=== PATIENT | male | born 1950 | race Caucasian/White ===

== ENCOUNTER → 2024-05-15 | Outpatient (CLI) | payer MEDICARE, MEDICAID, SELFPAY ==
[2024-05-15 13:26] LABS: Basophils # (Auto) 0.1 Thou/mm3 (0.0-0.2); Basophils % (Auto) 1 % (0-2.5); Eosinophils # (Auto) 0.3 Thou/mm3 (0.0-0.5); Eosinophils % (Auto) 4 % (0-10); Hematocrit 36.5 % (41.0-53.0); Immature Granulocytes % (Auto) 1 % (0-0); Immature Granulocytes Auto 0.04 Thou/mm3 (0.00-0.00); Lymphocytes # (Auto) 2.3 Thou/mm3 (1.0-4.8); Lymphocytes % (Auto) 29 % (10-50); Mean Corpuscular HGB Conc 32.9 g/dl (31.0-37.0); Mean Corpuscular Hemoglobin 29.9 pg (25.0-35.0); Mean Corpuscular Volume 91 fL (80-100); Monocytes # (Auto) 0.7 Thou/mm3 (0.0-0.8); Monocytes % (Auto) 9 % (0-12); Neutrophils # (Auto) 4.6 Thou/mm3 (1.8-7.7); Neutrophils % (Auto) 57 % (37-80); Nucleated Red Blood Cell % 0 /100 WBC (0); Platelet Count 168 Thou/mm3 (140-440); RDW Standard Deviation 51.1 fL (35.1-43.9); Red Blood Count 4.02 Miln/mm3 (4.50-5.90)
[2024-05-15 13:55] LABS: Alanine Aminotransferase 8 U/L (10-49); Albumin, Serum 3.7 gm/dL (3.4-4.8); Albumin/Globulin Ratio 1.2 (1.2-2.2); Alkaline Phosphatase 90 U/L (46-116); Anion Gap 4 (7-16); Aspartate Amino Transferase 13 U/L (0-34); BUN/Creatinine Ratio 24 Ratio (12-20); Bilirubin,Total 0.2 mg/dL (0.3-1.2); Blood Urea Nitrogen 29 mg/dL (9-23); Calcium 8.9 mg/dL (8.3-10.6); Calcium (Corrected) 9.1 mg/dL (8.5-10.1); Carbon Dioxide 27.4 mMol/L (20.0-31.0); Chloride 106 mMol/L (98-107); Creatinine (Component) 1.2 mg/dL (0.6-1.3); Globulin 3.2 gm/dL (2.3-3.5); Glucose 185 mg/dL (74-106); Osmolality,Calculated 284 (275-295); Potassium 4.3 mMol/L (3.4-5.1); Sodium 137 mMol/L (136-145); Total Protein 6.9 gm/dL (5.7-8.2); eGFR > 60 See Note
== END | disposition home or self-care (01) ==
LOC: SLDO 12:34
PROVIDERS: PCP Internal Medicine; Referring Provider Internal Medicine; Visit Provider Internal Medicine
DX: Z01.89 Encounter for other specified special examinations (principal); Z79.2 Long term (current) use of antibiotics
CPT/HCPCS: 36415; 80053; 85025

== ENCOUNTER → 2024-05-22 | Outpatient (CLI) | payer MEDICARE, MEDICAID, SELFPAY ==
[2024-05-22 16:38] LABS: Basophils # (Auto) 0.1 Thou/mm3 (0.0-0.2); Basophils % (Auto) 1 % (0-2.5); Eosinophils # (Auto) 0.2 Thou/mm3 (0.0-0.5); Eosinophils % (Auto) 2 % (0-10); Hematocrit 35.4 % (41.0-53.0); Hemoglobin 11.4 g/dL (13.5-16.0); Immature Granulocytes % (Auto) 1 % (0-0); Immature Granulocytes Auto 0.05 Thou/mm3 (0.00-0.00); Lymphocytes # (Auto) 2.2 Thou/mm3 (1.0-4.8); Lymphocytes % (Auto) 23 % (10-50); Mean Corpuscular HGB Conc 32.2 g/dl (31.0-37.0); Mean Corpuscular Hemoglobin 29.6 pg (25.0-35.0); Mean Corpuscular Volume 92 fL (80-100); Monocytes # (Auto) 0.8 Thou/mm3 (0.0-0.8); Monocytes % (Auto) 8 % (0-12); Neutrophils # (Auto) 6.4 Thou/mm3 (1.8-7.7); Neutrophils % (Auto) 67 % (37-80); Nucleated Red Blood Cell % 0 /100 WBC (0); Platelet Count 161 Thou/mm3 (140-440); RDW Standard Deviation 50.7 fL (35.1-43.9); Red Blood Count 3.85 Miln/mm3 (4.50-5.90); White Blood Count 9.6 Thou/mm3 (3.8-10.6)
[2024-05-22 17:19] LABS: Alanine Aminotransferase 12 U/L (10-49); Albumin/Globulin Ratio 1.2 (1.2-2.2); Alkaline Phosphatase 96 U/L (46-116); Anion Gap 6 (7-16); Aspartate Amino Transferase 16 U/L (0-34); BUN/Creatinine Ratio 24 Ratio (12-20); Bilirubin,Total 0.2 mg/dL (0.3-1.2); Blood Urea Nitrogen 29 mg/dL (9-23); Calcium 9.3 mg/dL (8.3-10.6); Calcium (Corrected) 9.3 mg/dL (8.5-10.1); Carbon Dioxide 27.1 mMol/L (20.0-31.0); Chloride 103 mMol/L (98-107); Creatinine (Component) 1.2 mg/dL (0.6-1.3); Globulin 3.3 gm/dL (2.3-3.5); Glucose 152 mg/dL (74-106); Osmolality,Calculated 280 (275-295); Potassium 4.5 mMol/L (3.4-5.1); Sodium 136 mMol/L (136-145); Total Protein 7.3 gm/dL (5.7-8.2); eGFR > 60 See Note
== END | disposition home or self-care (01) ==
LOC: SLDO 15:44
PROVIDERS: PCP Internal Medicine; Referring Provider Internal Medicine; Visit Provider Internal Medicine
DX: Z01.89 Encounter for other specified special examinations (principal); Z79.2 Long term (current) use of antibiotics
CPT/HCPCS: 36415; 80053; 85025

== ENCOUNTER → 2024-05-29 | Outpatient (CLI) | payer MEDICARE, MEDICAID, SELFPAY ==
[2024-05-29 12:43] LABS: Basophils % (Auto) 0 % (0-2.5); Eosinophils # (Auto) 0.2 Thou/mm3 (0.0-0.5); Eosinophils % (Auto) 3 % (0-10); Hematocrit 35.9 % (41.0-53.0); Hemoglobin 11.7 g/dL (13.5-16.0); Immature Granulocytes % (Auto) 0 % (0-0); Immature Granulocytes Auto 0.03 Thou/mm3 (0.00-0.00); Lymphocytes # (Auto) 2.1 Thou/mm3 (1.0-4.8); Lymphocytes % (Auto) 28 % (10-50); Mean Corpuscular HGB Conc 32.6 g/dl (31.0-37.0); Mean Corpuscular Hemoglobin 29.8 pg (25.0-35.0); Mean Corpuscular Volume 92 fL (80-100); Monocytes # (Auto) 0.9 Thou/mm3 (0.0-0.8); Monocytes % (Auto) 11 % (0-12); Neutrophils # (Auto) 4.5 Thou/mm3 (1.8-7.7); Neutrophils % (Auto) 58 % (37-80); Nucleated Red Blood Cell % 0 /100 WBC (0); Platelet Count 202 Thou/mm3 (140-440); RDW Standard Deviation 51.1 fL (35.1-43.9); Red Blood Count 3.92 Miln/mm3 (4.50-5.90); White Blood Count 7.8 Thou/mm3 (3.8-10.6)
[2024-05-29 13:17] LABS: Alanine Aminotransferase 10 U/L (10-49); Albumin, Serum 3.8 gm/dL (3.4-4.8); Albumin/Globulin Ratio 1.2 (1.2-2.2); Alkaline Phosphatase 91 U/L (46-116); Anion Gap 3 (7-16); Aspartate Amino Transferase 15 U/L (0-34); BUN/Creatinine Ratio 24 Ratio (12-20); Bilirubin,Total 0.4 mg/dL (0.3-1.2); Blood Urea Nitrogen 29 mg/dL (9-23); Calcium 8.9 mg/dL (8.3-10.6); Calcium (Corrected) 9.1 mg/dL (8.5-10.1); Carbon Dioxide 29.4 mMol/L (20.0-31.0); Chloride 108 mMol/L (98-107); Creatinine (Component) 1.2 mg/dL (0.6-1.3); Globulin 3.2 gm/dL (2.3-3.5); Glucose 114 mg/dL (74-106); Osmolality,Calculated 286 (275-295); Potassium 4.4 mMol/L (3.4-5.1); Sodium 140 mMol/L (136-145); eGFR > 60 See Note
== END | disposition home or self-care (01) ==
PROVIDERS: Referring Provider Internal Medicine; Visit Provider Internal Medicine
DX: Z01.89 Encounter for other specified special examinations (principal); Z79.2 Long term (current) use of antibiotics
CPT/HCPCS: 36415; 80053; 85025

== ENCOUNTER → 2024-08-20 | Outpatient (BNVA) | payer MEDICARE, MEDICAID, SELFPAY | END | disposition home or self-care (01) | PROVIDERS: PCP Internal Medicine; Referring Provider Internal Medicine; Visit Provider Urology | DX: N40.1 Benign prostatic hyperplasia with lower urinary tract symptoms (principal); N13.8 Other obstructive and reflux uropathy; N20.0 Calculus of kidney; N31.9 Neuromuscular dysfunction of bladder, unspecified; Z87.440 Personal history of urinary (tract) infections; E11.9 Type 2 diabetes mellitus without complications; F17.210 Nicotine dependence, cigarettes, uncomplicated; I10 Essential (primary) hypertension; E78.00 Pure hypercholesterolemia, unspecified; I25.10 Atherosclerotic heart disease of native coronary artery without angina pectoris; J44.9 Chronic obstructive pulmonary disease, unspecified | CPT/HCPCS: 81003; 99212; G0463 ==

== ENCOUNTER → 2024-08-28 | Outpatient (CLI) | payer MEDICARE, MEDICAID, SELFPAY ==
[2024-08-28 15:09] LABS: Collection Type, Urine Clean Catch
[2024-08-28 15:41] LABS: Basophils # (Auto) 0.1 Thou/mm3 (0.0-0.2); Basophils % (Auto) 0 % (0-2.5); Eosinophils # (Auto) 0.1 Thou/mm3 (0.0-0.5); Eosinophils % (Auto) 1 % (0-10); Hematocrit 39.1 % (41.0-53.0); Hemoglobin 12.6 g/dL (13.5-16.0); Immature Granulocytes % (Auto) 1 % (0-0); Immature Granulocytes Auto 0.06 Thou/mm3 (0.00-0.00); Lymphocytes % (Auto) 17 % (10-50); Mean Corpuscular HGB Conc 32.2 g/dl (31.0-37.0); Mean Corpuscular Hemoglobin 29.2 pg (25.0-35.0); Mean Corpuscular Volume 91 fL (80-100); Monocytes # (Auto) 1.4 Thou/mm3 (0.0-0.8); Monocytes % (Auto) 12 % (0-12); Neutrophils # (Auto) 8.2 Thou/mm3 (1.8-7.7); Neutrophils % (Auto) 70 % (37-80); Nucleated Red Blood Cell % 0 /100 WBC (0); Platelet Count 208 Thou/mm3 (140-440); RDW Standard Deviation 47.5 fL (35.1-43.9); Red Blood Count 4.32 Miln/mm3 (4.50-5.90); White Blood Count 11.7 Thou/mm3 (3.8-10.6)
[2024-08-28 15:44] LABS: Bilirubin,Urine Negative (Negative); Blood,Urine Negative (Negative); Clarity,Urine Clear (Clear/Hazy); Color,Urine Lt-Yellow (Lt Yel-Yel); Glucose, Urine 1+ (Negative); Ketones,Urine Negative (Negative); Leukocyte Esterase,Urine Positive (Negative); Nitrite,Urine Negative (Negative); Protein,Urine 1+ (Neg - Trace); RBC,Urine 10 /hpf (0-3); Specific Gravity,Urine 1.021 (1.001-1.035); Squamous Epithelial Cell,Urine < 1 /hpf (0-5); Urobilinogen,Urine Negative mg/dL (0.0-1.0); WBC,Urine 96 /hpf (0-5)
[2024-08-28 15:50] LABS: Glucose Estimated Average 137 mg/dL (80-131); Hemoglobin A1C 6.4 % Hgb (4.8-6.0)
[2024-08-28 15:53] LABS: PSA Medicare Annual Scrn 0.18 ng/mL (0-4.00)
[2024-08-28 15:53] LABS: Creatinine MALB Rnd Ur 63 mg/dL (30-125); Microalbumin Creat Ratio 319 mg/gCrea (<30); Microalbumin, Random Urine 201 mg/L (0-300)
[2024-08-28 15:58] LABS: Culture Indicated,Urine Yes
[2024-08-28 16:01] LABS: Vitamin B12 520 pg/mL (211-911); Vitamin D 25 Hydroxy Total 25.6 ng/mL (7.3-40.2)
[2024-08-28 16:02] LABS: Alanine Aminotransferase 10 U/L (10-49); Albumin/Globulin Ratio 1.1 (1.2-2.2); Alkaline Phosphatase 85 U/L (46-116); Anion Gap 8 (7-16); Aspartate Amino Transferase 12 U/L (0-34); BUN/Creatinine Ratio 29 Ratio (12-20); Bilirubin,Total 0.4 mg/dL (0.3-1.2); Blood Urea Nitrogen 29 mg/dL (9-23); Calcium 8.7 mg/dL (8.3-10.6); Calcium (Corrected) 8.7 mg/dL (8.5-10.1); Carbon Dioxide 28.4 mMol/L (20.0-31.0); Cardiac Risk Estimate 2.8 RATIO (4.0-6.7); Chloride 104 mMol/L (98-107); Cholesterol 119 mg/dL (132-200); Globulin 3.5 gm/dL (2.3-3.5); Glucose 87 mg/dL (74-106); HDL Cholesterol 43 mg/dL (40-60); LDL Cholesterol,Calculated 63 mg/dL (0-130); Osmolality,Calculated 284 (275-295); Potassium 4.4 mMol/L (3.4-5.1); Sodium 140 mMol/L (136-145); Thyroid Stimulating Hormone 0.72 uIU/mL (0.55-4.78); Total Protein 7.5 gm/dL (5.7-8.2); Triglycerides 63 mg/dL (30-150); eGFR > 60 See Note
== END | disposition home or self-care (01) ==
LOC: COPL 14:06
PROVIDERS: PCP Internal Medicine; Referring Provider Internal Medicine; Visit Provider Internal Medicine
DX: Z00.00 Encounter for general adult medical examination without abnormal findings (principal); E11.9 Type 2 diabetes mellitus without complications; I10 Essential (primary) hypertension; E78.5 Hyperlipidemia, unspecified; N20.0 Calculus of kidney; D51.9 Vitamin B12 deficiency anemia, unspecified; E55.9 Vitamin D deficiency, unspecified; Z12.5 Encounter for screening for malignant neoplasm of prostate
CPT/HCPCS: 36415; 80053; 80061; 81001; 82043; 82306; 82570; 82607; 83036; 84153; 84443; 84550; 85025; 87077; 87086; 87186; G0103

== ENCOUNTER → 2024-08-30 | Outpatient (CLI) | payer MEDICARE, MEDICAID, SELFPAY ==
--- NOTE | 2024-08-30 14:06 | XR_ITS ---
Examination:Right hip AP, lateral, AP pelvis 3 views Technique: Hip AP lateral, AP pelvis, 3 views Exam date and time:August 30, 2024 1431 hours INDICATIONS: Right hip pain beginning 5 years ago. FINDINGS: Right hip bipolar hemiarthroplasty satisfactory position Severe osteopenia Moderate narrowing left hip joint Right common iliac artery stent No fracture IMPRESSION: Right hip bipolar hemiarthroplasty with satisfactory alignment.
--- NOTE | 2024-08-30 14:06 | XR_ITS ---
Examination: Lumbar spine, 5 views Technique: Lumbar spine AP, lateral, coned lateral lower lumbar spine, bilateral obliques 5 views Exam date and time: August 30, 2024 1431 hours Comparison 03/16/2024 INDICATIONS: Low back pain 5 years FINDINGS: Severe osteopenia Lumbar levoscoliosis 39 degrees Diffuse advanced facet arthropathy Chronic osteoporotic compression L2 and to lesser extent L4 No acute lumbar fracture Also chronic osteoporotic compression L1 and T12 Advanced disc narrowing L2-L3, L3-L4, L4-L5 No spondylolisthesis Right renal and common iliac right vascular stents IMPRESSION: Severe lumbar levoscoliosis Advanced degenerative disc disease L2-L3, L3-L4, L4-L5 with spinal stenosis
== END | disposition home or self-care (01) ==
LOC: CDIM 13:48
PROVIDERS: PCP Internal Medicine; Referring Provider Internal Medicine; Visit Provider Internal Medicine
DX: M41.86 Other forms of scoliosis, lumbar region (principal); M51.369 Other intervertebral disc degeneration, lumbar region without mention of lumbar back pain or lower extremity pain; M48.061 Spinal stenosis, lumbar region without neurogenic claudication; M25.551 Pain in right hip; Z96.641 Presence of right artificial hip joint
CPT/HCPCS: 72110; 73502

== ENCOUNTER → 2024-10-01 | Outpatient (CLI) | payer MEDICARE, MEDICAID, SELFPAY ==
[2024-10-01 11:22] LABS: Basophils # (Auto) 0.1 Thou/mm3 (0.0-0.2); Basophils % (Auto) 1 % (0-2.5); Eosinophils # (Auto) 0.4 Thou/mm3 (0.0-0.5); Eosinophils % (Auto) 3 % (0-10); Hematocrit 37.7 % (41.0-53.0); Hemoglobin 12.2 g/dL (13.5-16.0); Immature Granulocytes % (Auto) 1 % (0-0); Immature Granulocytes Auto 0.08 Thou/mm3 (0.00-0.00); Lymphocytes # (Auto) 2.2 Thou/mm3 (1.0-4.8); Lymphocytes % (Auto) 17 % (10-50); Mean Corpuscular HGB Conc 32.4 g/dl (31.0-37.0); Mean Corpuscular Hemoglobin 28.9 pg (25.0-35.0); Mean Corpuscular Volume 89 fL (80-100); Monocytes # (Auto) 1.3 Thou/mm3 (0.0-0.8); Monocytes % (Auto) 10 % (0-12); Neutrophils % (Auto) 69 % (37-80); Nucleated Red Blood Cell % 0 /100 WBC (0); Platelet Count 209 Thou/mm3 (140-440); RDW Standard Deviation 48.9 fL (35.1-43.9); Red Blood Count 4.22 Miln/mm3 (4.50-5.90); White Blood Count 12.9 Thou/mm3 (3.8-10.6)
[2024-10-01 11:43] LABS: Alanine Aminotransferase 11 U/L (10-49); Albumin, Serum 3.7 gm/dL (3.4-4.8); Albumin/Globulin Ratio 1.1 (1.2-2.2); Alkaline Phosphatase 79 U/L (46-116); Anion Gap 5 (7-16); Aspartate Amino Transferase 14 U/L (0-34); BUN/Creatinine Ratio 23 Ratio (12-20); Bilirubin,Total 0.3 mg/dL (0.3-1.2); Blood Urea Nitrogen 28 mg/dL (9-23); Calcium 9.2 mg/dL (8.3-10.6); Calcium (Corrected) 9.4 mg/dL (8.5-10.1); Carbon Dioxide 28.7 mMol/L (20.0-31.0); Chloride 108 mMol/L (98-107); Creatinine (Component) 1.2 mg/dL (0.6-1.3); Globulin 3.3 gm/dL (2.3-3.5); Glucose 174 mg/dL (74-106); Osmolality,Calculated 292 (275-295); Potassium 4.5 mMol/L (3.4-5.1); Sodium 142 mMol/L (136-145); eGFR > 60 See Note
[2024-10-03 19:49] LABS: HCV RNA, PCR <15 NOT DETECTED IU/mL
[2024-10-04 06:33] LABS: HCV RNA, PCR Log IU <1.18 NOT DETECTED Log IU/mL
== END | disposition home or self-care (01) ==
LOC: COPL 10:27
PROVIDERS: PCP Internal Medicine; Referring Provider Specialist; Visit Provider Specialist
DX: B18.2 Chronic viral hepatitis C (principal)
CPT/HCPCS: 36415; 80053; 85025; 87522

== ENCOUNTER → 2024-10-08 | Outpatient (CLI) | payer MEDICARE, MEDICAID, SELFPAY ==
--- NOTE | 2024-10-08 14:00 | XR_ITS ---
Examination: Abdomen sonogram, complete Date and time of exam: October 08, 2024 1433 hours INDICATIONS: Diagnosis chronic hepatitis C, epigastric pain beginning 10 years ago. Technique: Multiple real-time grayscale transabdominal sonographic images of the abdomen have been obtained. Findings: Absent gallbladder Normal common bile duct 0.3 cm Pancreas obscured by bowel gas Aorta not enlarged Liver 12.6 cm lobular contour Normal hepatopedal portal venous flow Patent IVC Right kidney 6.8 cm cortex 1.0 cm Left kidney 10.1 cm renal cortex 1.1 cm Mild right mild left renal parenchymal scar formation 9 mm lower pole nonobstructing left renal calculi Spleen 9.2 cm IMPRESSION: Absent gallbladder Normal common bile duct Suspect primary hepatocellular disease Small right kidney 9 mm nonobstructing lower pole left renal calculus
== END | disposition home or self-care (01) ==
PROVIDERS: PCP Internal Medicine; Referring Provider Specialist; Visit Provider Specialist
DX: N20.0 Calculus of kidney (principal); Z90.49 Acquired absence of other specified parts of digestive tract; N28.89 Other specified disorders of kidney and ureter; B18.2 Chronic viral hepatitis C
CPT/HCPCS: 76700

== ENCOUNTER 2024-12-26 15:10 | Inpatient (IN) | payer MEDICARE, MEDICAID, SELFPAY ==
[2024-12-26 15:17] VITALS: BP 105/62; PULSE 72; RESP 17; TEMP 36.8; O2SAT 95; BMI 19.1
--- NOTE | 2024-12-26 15:17 | XR_ITS ---
Examination: AP chest single view TECHNIQUE: AP portable upright chest single view Date and time: December 26, 2024 1559 hours INDICATIONS: Shortness of breath today. FINDINGS: Significant pneumonia left base Mild prominence left ventricle Prominent osteopenia IMPRESSION: Significant pneumonia left base
--- NOTE | 2024-12-26 15:17 | EKG_ITS ---
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
[2024-12-26 15:38] LABS: Basophils % (Auto) 0 % (0-2.5); Eosinophils # (Auto) 0.2 Thou/mm3 (0.0-0.5); Eosinophils % (Auto) 1 % (0-10); Hematocrit 31.3 % (41.0-53.0); Hemoglobin 10.3 g/dL (13.5-16.0); Immature Granulocytes % (Auto) 1 % (0-0); Immature Granulocytes Auto 0.09 Thou/mm3 (0.00-0.00); Lymphocytes % (Auto) 10 % (10-50); Mean Corpuscular HGB Conc 32.9 g/dl (31.0-37.0); Mean Corpuscular Hemoglobin 29.8 pg (25.0-35.0); Mean Corpuscular Volume 91 fL (80-100); Monocytes # (Auto) 1.6 Thou/mm3 (0.0-0.8); Monocytes % (Auto) 8 % (0-12); Neutrophils # (Auto) 15.3 Thou/mm3 (1.8-7.7); Neutrophils % (Auto) 80 % (37-80); Nucleated Red Blood Cell % 0 /100 WBC (0); Platelet Count 175 Thou/mm3 (140-440); Red Blood Count 3.46 Miln/mm3 (4.50-5.90); White Blood Count 19.2 Thou/mm3 (3.8-10.6)
--- NOTE | 2024-12-26 15:59 | EDNOTE_ITS ---
Altered Mental Status RME/HPI General Chief Complaint: Recheck/Abnormal Lab/Rx Stated Complaint: HYPOGLYCEMIA Time Seen by Provider: 12/26/24 15:59 Arrival date/time: 12/26/24 15:10 RME / HPI RME / HPI narrative: This section includes all my notes and documentations, including HPI, PE, and ED course.? Taurus Heath MD HPI: 74 year old male with history of diabetes, BPH, history of hepatitis C, CKD, COPD, GERD presents to the ED BIBA for evaluation of near syncopal episodes and weakness today. Patient states he was at an outpatient lab center where he suddenly began to feel very weak and faint. Adding he almost fell several times. No LOC or falls. Per medics, on scene blood sugar was in the 20s and given D10 with improvement. No other associated symptoms or complaints reported. ROS: All negative except as documented in HPI. Physical Exam: General:? Alert and oriented.? No acute distress.?? Eyes:? Conjunctivae and lids clear.? EOMI.? PERRL. ENT:? No nasal congestion.? Pharynx normal.? Tympanic membrane normal bilaterally.??? Neck:? Supple.? No carotid bruit.? No JVD.?? Heart:? RRR.? Lungs:? No respiratory distress.? Good air movement with rales.?? Abdomen:? Soft and nontender.? Normal bowel sounds.? No distension.? No rebound or guarding.?? Back:? No CVA tenderness.?? Legs:? No clubbing, cyanosis, edema.? Skin:? Warm and dry.?? Neuro:? Alert and oriented X 3.? Cranial Nerves II-XII grossly intact.? No peripheral motor deficits. I reviewed EMS notes. I reviewed all diagnostic test results: My interpretation of the EKG is: NSR (64 bpm) with no ST-T changes. My interpretation of the chest x-ray is infiltrates. Blood tests remarkable for WBC 19.2. UA showed positive leukocyte esterase, 4 RBC and 72 WBC. Covid/Influenza are negative. At this point, diagnoses include: hypoglycemia, pneumonia, and pneumonia. Treatment here included: Dextrose, IV fluid, Rocephin, Zithromax, and D50 with hypoglycemia. Some improvement noted. I discussed the case with Dr. Lea.? About the presentation and exam and diagnostics and treatments here.? And need of further care in the hospital.? Will accept the patient. Taurus Heath MD Related Data Home Medications ?Medication ?Instructions ?Recorded ?Confirmed glipizide 5 mg tablet 5 mg PO BID 08/28/21 5 tizanidine 4 mg tablet 4 mg PO QID PRN Muscle Spasm 11/09/21 12/26/24 finasteride 5 mg tablet 5 mg PO QDAY 11/15/22 tamsulosin 0.4 mg capsule 0.4 mg PO BID 11/15/2212/26 clopidogrel 75 mg tablet (Plavix) 75 mg PO QDAY 12/26/24 pregabalin 225 mg capsule 75 mg PO TID 06/10/23 potassium citrate 15 mEq (1,620 15 meq PO TID 08/13/23 12/26/24 mg) tablet,extended release albuterol sulfate 90 mcg/actuation 1 puff inhalation B ID PRN Wheezing 08/22/23 12/26/24 aerosol inhaler morphine 15 mg tablet,extended 15 mg PO BID PRN Pain ( Scale Score 08/22/23 12/26/24 release 4-6) morphine 30 mg tablet,extended 30 mg PO BID PRN Pain ( Scale Score 08/22/23 12/26/24 release 7-10) atorvastatin 20 mg tablet (Lipitor) 20 mg PO QDAY 09/0912/26/24 fluticasone furoate 200 1 inh inhalation QDAY 12/26/24 mcg-vilanterol 25 mcg/dose inhalation powder (Breo Ellipta) pantoprazole 20 mg tablet,delayed 20 mg PO QDAY 12/26/24 release (Protonix) morphine 60 mg tablet,extended 60 mg PO BID 12/26/24 0 12/26/24 release pantoprazole 40 mg tablet,delayed 40 mg PO QAM 5 12/26/24 release (Protonix) Previous Rx's ?Medication ?Instructions ?Recorded methenamine hippurate 1 gram tablet 1 g PO BID #60 tab s 06/11/23 Allergies Allergy/AdvReac Type Severity Reaction Status Date / Time alprazolam Allergy Severe Agitated Verified 08/20/24 11:34 dicyclomine (From Bentyl) Allergy Severe Vomiting Verified 08/20/24 11:34 metronidazole (From Flagyl) Allergy Severe Vomiting Verified 08/20/24 11:34 shellfish derived Allergy Severe Vomiting Verified 08/20/24 11:34 Benzodiazepines AdvReac Severe ALTERS Verified 08/20/24 11:34 BEHAVIOR Review of Systems Review of Systems Systems Reviewed: All systems reviewed, normal except as documented Past Medical History Past Medical History CARDIAC: Positive Cardiac Disorders, Coronary Artery Disease, Hypercholesterolemia and Hypertension RESPIRATORY: Positive Chronic Obstructive Pulmonary Disease (COPD), Asthma, Pneumonia and Smoking GASTROINTESTINAL: Positive Gastrointestinal Disorders, Hepatitis, Hiatal Hernia and Hemorrhoids GENITOURINARY: Positive Genitourinary Disorders, Kidney Stones and Benign Prostatic Hyperplasia MUSCULOSKELETAL: Positive Musculoskeletal Disorders, Myasthenia Gravis, Arthritis, Osteoporosis and Degenerative Disk Disease ENT: Positive Cataracts and Deafness ENDOCRINE: Positive Endocrine Disorders and Diabetes Mellitus Type 2 PSYCHO/SOCIAL: Positive Depression OTHER HISTORY: Positive Hospitalization, Falls and Cancer Family History FAMILY HISTORY: Negative Family Neurologic Problems, Family Psychiatric Problems, Family Respiratory Disorders, Family Cardiac Disorders, Family Gastrointestinal Problems, Family Cancer, Family Surgery or Family Anesthesia Reaction Surgical History SURGICAL: Positive Vascular Surgery, Coronary Stent, Angiogram, Endocrine Surgery, Abdominal Surgery, Gastrostomy, Nephrectomy and Joint Replacement Social History SMOKING STATUS: Current every day smoker SECOND HAND EXPOSURE: No SUBSTANCE USE: does not use ED Exam Narrative Physical exam: As noted in HPI Course Quality Measures none Orders Category Date Time Status Bedside COVID-19 Antigen Test NOW Care 12/26/24 15:16 Active Bedside Influenza A&B Antigen Test NOW Care 12/26/24 15:16 Completed COVID-19 Screening Questionnaire NOW Care 12/26/24 17:36 Active Decision to Admit X1 Care 12/26/24 17:36 Completed EKG (ED ONLY) *Do not use* NOW Care 12/26/24 15:17 Completed Saline [Insert IV] NOW Care 12/26/24 15:16 Completed Straight [In and Out Catheter] X1 Care 12/26/24 15:16 Completed EKG (ED Only) Stat Exams 12/26/24 15:17 Draft XR chest 1V portable Stat Exams 12/26/24 15:17 Completed Alcohol, Blood Medical Stat Lab 12/26/24 15:27 Completed Amylase Stat Lab 12/26/24 15:27 Completed Beta Hydroxybutyrate Stat Lab 12/26/24 15:27 Completed Bilirubin,Direct Stat Lab 12/26/24 15:27 Completed CBC Stat Lab 12/26/24 15:27 Completed CMP [Comprehensive Metabolic Panel] Stat Lab 12/26/24 15:27 Completed CRP [C-Reactive Protein] Stat Lab 12/26/24 15:27 Completed ESR [Sed Rate (ESR)] Stat Lab 12/26/24 15:27 Completed Free T4 (Free Thyroxine) Stat Lab 12/26/24 15:27 Completed Hemoglobin A1C [Glycohemoglobin w (eAG)] Stat Lab 12/26/24 15:27 Completed Lipase Stat Lab 12/26/24 15:27 Completed Magnesium Stat Lab 12/26/24 15:27 Completed Procalcitonin Stat Lab 12/26/24 15:27 Completed TSH [Thyroid Stimulating Hormone] Stat Lab 12/26/24 15:27 Completed Troponin I Stat Lab 12/26/24 15:27 Completed UA, C/S IF [Urinalysis, C/S if Indicated] Stat Lab 12/26/24 17:48 Completed Urine Culture Stat Lab 12/26/24 17:48 Received Azithromycin Inj [Zithromax Inj] 500 mg Med 12/26/24 17:10 Discontinued Sodium Chloride 0.9% 250 ml [Ns] 250 ml IV X1 Dextrose 50% Syr [D50w Syringe Abboject] Med 12/26/24 15:16 Discontinued 50 ml IVP X1 ONE Morphine Inj Med 12/26/24 17:11 Discontinued 4 mg IVP X1 ONE Ondansetron Inj [Zofran Inj] Med 12/26/24 15:17 Discontinued 4 mg IVP X1 ONE Sodium Chloride 0.9% 1000 ml [Ns] 1,000 ml Med 12/26/24 15:17 Discontinued IV 999 mls/hr cefTRIAXone/D5w 1gm IV premix [Rocephin/D5w 1gm IV Med 12/26/24 17:10 Discontinued premix] 1 gm in 50 ml IV X1 Vital Signs Vital signs: Vital Signs Temperature 98.3 F 12/26/24 15:17 Pulse Rate 72 12/26/24 15:17 Respiratory Rate 17 12/26/24 15:17 Blood Pressure 105/62 12/26/24 15:17 Pulse Oximetry (%) 95 12/26/24 15:17 Oxygen Delivery Method Room Air 12/26/24 15:17 Pulse ox is 95% on room air which is adequate. Altered Mental Status MDM Narrative MDM Narrative:: 74 year old male with history of diabetes, BPH, history of hepatitis C, CKD, COPD, GERD presents to the ED BIBA for evaluation of near syncopal episode and weakness today. Patient states he was at an outpatient lab center where he suddenly began to feel very weak and faint. Adding he almost fell several times. No LOC or falls. Per medics, on scene blood sugar was in the 20s and given D10 with improvement. No other associated symptoms or complaints reported. Patient data External records reviewed:: [facility] previous records and EMS form Clinical information provided by:: patient and EMS Social determinants that could affect healthcare access:: none Patient has the following chronic illnesses:: diabetes, BPH, history of hepatitis C, CKD, COPD, GERD How is presenting disease/condition affected by chronic disease/condition?: exacerbated by Evaluation data The following diagnostics were reviewed and interpreted by me:: lab results, radiology exam(s) and EKG tracing(s) (My interpretation of the EKG: NSR (64 bpm) with no ST-T changes. Taurus Heath MD) Lab and/or radiology exams considered but not ordered:: None Interpretation Summary: I reviewed all diagnostic test results: My interpretation of the EKG is: NSR (64 bpm) with no ST-T changes. My interpretation of the chest x-ray is infiltrates. Blood tests remarkable for WBC 19.2. UA showed positive leukocyte esterase, 4 RBC and 72 WBC. Covid/Influenza are negative. Medications / Prescriptions Medications or Prescriptions considered but not ordered:: None Medication administrations:: Medication Administration History Albuterol (Albuterol Inh 8 Gm) 1 puff INH BID PRN PRN Reason: Wheezing Stop: 01/26/25 06:14 Atorvastatin Calcium (Atorvastatin Calcium 20 Mg Tablet) 20 mg PO HS [facility] Stop: 01/26/25 20:59 Clopidogrel Bisulfate (Clopidogrel Bisulfate 75 Mg Tablet) 75 mg PO QDAY [facility] Stop: 01/26/25 08:59 Dextrose (Dextrose 50%-Water Inj 50 Ml Syringe) 25 ml IV Q15MIN PRN PRN Reason: BG 50-70 responsive npo pt Stop: 01/26/25 06:19 Dextrose (Dextrose 50%-Water Inj 50 Ml Syringe) 50 ml IV Q15MIN PRN PRN Reason: BG <50 OR BG <70 & pt unresponsive Stop: 01/26/25 06:19 Finasteride (Finasteride 5 Mg Tablet) 5 mg PO QDAY [facility] Stop: 01/26/25 08:59 Glucagon (Glucagon Inj 1 Mg Vial) 1 mg IM Q15MIN PRN PRN Reason: BG <70, and no IV access Heparin Sodium (Porcine) (Heparin Sod Inj 5000 Unit/Ml Vial) 5,000 unit SC Q8HR [facility] Stop: 01/10/25 13:59 Dextrose/Sodium Chloride (D5-Ns) 1,000 mls @ 100 mls/hr IV .Q10H [facility] Stop: 01/25/25 17:44 Last Admin: 12/27/24 03:32 Dose: 100 mls/hr Documented By: Infusion: 12/27/24 03:32 Dose: Infused Documented By: Admin: 12/26/24 18:26 Dose: 100 mls/hr Documented By: GM Ceftriaxone Sodium/Dextrose (Rocephin/D5w 1gm Iv Premix) 1 gm in 50 mls @ 100 mls/hr IV QDAY [facility] Stop: 01/03/25 06:21 Last Admin: 12/27/24 07:11 Dose: 100 mls/hr Documented By: ARMAND Azithromycin 500 mg/ Sodium (Chloride) 250 mls @ 250 mls/hr IV QDAY [facility] Stop: 01/03/25 08:59 Insulin Human Lispro (Insulin Lispro (Admelog) 1 Unit/0.01 Ml Unit) 0 unit SC AC [facility]; Protocol Stop: 01/26/25 07:29 Morphine Sulfate (Morphine Sulf 15 Mg Tabcr) 15 mg PO BID PRN; Protocol PRN Reason: Pain (Scale Score 4-6) Stop: 01/01/25 06:14 Last Admin: 12/27/24 07:34 Dose: 15 mg Documented By: MOIZ Home Medication- Please Speak With Patient Caregiver To Have Rx Brought To [facility] 1 gm PO BID [facility] Stop: 01/26/25 06:29 Last Admin: 12/27/24 07:13 Dose: Not Given Documented By: ARMAND Non-Admin Reason: Medication Not Available Pantoprazole Sodium (Pantoprazole 40 Mg Tablet) 40 mg PO QAM [facility] Stop: 01/26/25 08:59 Potassium Chloride (Potassium Chloride 10% 20 Meq/15 Ml Udc) 15 meq PO TID [facility] Stop: 01/26/25 13:59 Pregabalin (Pregabalin 75 Mg Capsule) 75 mg PO TID [facility] Stop: 01/26/25 06:29 Last Admin: 12/27/24 07:10 Dose: 75 mg Documented By: MRG Fluticasone/Salmeterol (Fluticasone/Salmeterol 250/50 14 Dose Inh) 1 puff INH [id number] [facility] Stop: 01/26/25 06:59 Tamsulosin HCl (Tamsulosin Hcl 0.4 Mg Capsule) 0.4 mg PO BID [facility] Stop: 01/26/25 08:59 Discontinued Medications Dextrose (Dextrose 50%-Water Inj 50 Ml Syringe) 50 ml IVP X1 ONE Stop: 12/26/24 15:17 Last Admin: 12/26/24 16:09 Dose: 50 ml Documented By: VG Sodium Chloride (Ns) 1,000 mls @ 999 mls/hr IV .Q1H1M ONE Stop: 12/26/24 16:17 Last Infusion: 12/26/24 17:09 Dose: Infused Documented By: Admin: 12/26/24 16:14 Dose: 999 mls/hr Documented By: VG Azithromycin 500 mg/ Sodium (Chloride) 250 mls @ 250 mls/hr IV X1 ONE Stop: 12/26/24 18:09 Last Admin: 12/26/24 18:17 Dose: 250 mls/hr Documented By: GM Ceftriaxone Sodium/Dextrose (Rocephin/D5w 1gm Iv Premix) 1 gm in 50 mls @ 100 mls/hr IV X1 ONE Stop: 12/26/24 17:39 Last Infusion: 12/26/24 18:00 Dose: Infused Documented By: Admin: 12/26/24 17:17 Dose: 100 mls/hr Documented By: GM Insulin Human Lispro (Insulin Lispro (Admelog) 1 Unit/0.01 Ml Unit) 0 unit SC AC [facility]; Protocol Stop: 01/26/25 07:29 Morphine Sulfate (Morphine Sulf Inj 10 Mg/Ml Vial) 4 mg IVP X1 ONE Stop: 12/26/24 17:12 Last Admin: 12/26/24 17:17 Dose: 4 mg Documented By: GM Ondansetron HCl (Ondansetron Inj 2 Mg/Ml Inj 2 Ml) 4 mg IVP X1 ONE; Protocol Stop: 12/26/24 15:18 Last Admin: 12/26/24 16:18 Dose: Not Given Documented By: GUNNER Non-Admin Reason: Patient Refused Treatment here from me included: Dextrose, IV fluid, Rocephin, Zithromax, and D50 with hypoglycemia. Consultations Consultation(s) initiated? (list below): No Diagnosis Differential diagnosis altered mental status: alcoholic intoxication, altered mental status, delirium, dementia, hypoglycemia, hyponatremia, subarachnoid hemorrhage and sepsis Most likely diagnosis given after review of the tests above:: Hypoglycemia, pneumonia, and UTI. Admission Indicated Admission indicated?: indicated Explain why admission is indicated or not indicated:: Hypoglycemia, pneumonia, and UTI. Admission Request Was there a request for admission?: Yes Admission Attestation Admission request attestation: Discussed case with Dr. Lea regarding admission. Discussed patients ED course, exam findings, labs, and radiology results. Agrees to accept the patient for admission. Disposition Plan Disposition Plan: Admit Discharge Plan Plan Patient Disposition: Admit Acute Care w/in Hospital Problem List Clinical Impression: Hypoglycemia, Pneumonia
[2024-12-26] MEDS: DEXTROSE 50%-WATER INJ 50 ML SYRINGE IVP (16:09)
[2024-12-26 16:10] LABS: Alanine Aminotransferase 9 U/L (10-49); Albumin, Serum 3.6 gm/dL (3.4-4.8); Albumin/Globulin Ratio 1.2 (1.2-2.2); Alcohol, Blood Medical < 10.0 mg/dL (0-10.0); Alkaline Phosphatase 70 U/L (46-116); Amylase 44 U/L (30-118); Anion Gap 4 (7-16); Aspartate Amino Transferase 18 U/L (0-34); BUN/Creatinine Ratio 20 Ratio (12-20); Bilirubin,Direct 0.1 mg/dL (0.0-0.3); Bilirubin,Total 0.3 mg/dL (0.3-1.2); Blood Urea Nitrogen 32 mg/dL (9-23); C-Reactive Protein 13.6 mg/dL (0.0-0.9); Calcium 8.2 mg/dL (8.3-10.6); Calcium (Corrected) 8.5 mg/dL (8.5-10.1); Carbon Dioxide 24.6 mMol/L (20.0-31.0); Chloride 108 mMol/L (98-107); Creatinine (Component) 1.6 mg/dL (0.6-1.3); Estimated Creatinine Clearance 32.2 mL/min (>60); Free T4 (Free Thyroxine) 0.96 ng/dL (0.89-1.76); Glucose 97 mg/dL (74-106); Lipase 23 U/L (12-53); Magnesium 1.9 mg/dL (1.6-2.6); Osmolality,Calculated 280 (275-295); Potassium 3.8 mMol/L (3.4-5.1); Procalcitonin 1.16 ng/ml (0.0-0.49); Sodium 137 mMol/L (136-145); Total Protein 6.6 gm/dL (5.7-8.2); Troponin I < 0.020 ng/mL (0.0-0.045); eGFR 45 See Note
[2024-12-26] MEDS: SODIUM CHLORIDE 0.9% 1000 ML 1,000 ML 999 ML IV (16:14)
[2024-12-26 16:22] VITALS: PULSE 75; RESP 18; O2SAT 100
[2024-12-26 16:39] LABS: Sed Rate (ESR) 59 mm/hr (0-20)
[2024-12-26] MEDS: MORPHINE SULF INJ 10 MG/ML VIAL 4 MG IVP (17:17)
[2024-12-26] MEDS: cefTRIAXone/D5w 1gm IV premix 1 GM/50 ML BAG IV (17:17)
[2024-12-26 17:40] LABS: Glucose Estimated Average 131 mg/dL (80-131); Hemoglobin A1C 6.2 % Hgb (4.8-6.0)
[2024-12-26 17:51] LABS: Collection Type, Urine Clean Catch
[2024-12-26 17:58] LABS: Bilirubin,Urine Negative (Negative); Blood,Urine Trace (Negative); Clarity,Urine Clear (Clear/Hazy); Color,Urine Lt-Yellow (Lt Yel-Yel); Glucose, Urine 1+ (Negative); Ketones,Urine Negative (Negative); Leukocyte Esterase,Urine Positive (Negative); Nitrite,Urine Negative (Negative); Protein,Urine 1+ (Neg - Trace); RBC,Urine 4 /hpf (0-3); Squamous Epithelial Cell,Urine 1 /hpf (0-5); Urobilinogen,Urine Negative mg/dL (0.0-1.0); WBC,Urine 72 /hpf (0-5)
[2024-12-26 17:59] LABS: Culture Indicated,Urine Yes
[2024-12-26] MEDS: AZITHROMYCIN INJ 500 MG in SODIUM CHLORIDE 0.9% 250 ML 250 ML 250 MG IV (18:17)
[2024-12-26 18:20] VITALS: BP 126/56; PULSE 61; RESP 16; TEMP 36.9; O2SAT 97
[2024-12-26] MEDS: DEXTROSE 5%-NS 1,000 ML 100 ML IV (18:26)
--- NOTE | 2024-12-26 19:14 | PD.NEPHHP ---
Documented by User: Maikol Lea MD 12/27/24 22:13 Documentation for date of: 12/26/24 History of Present Illness History of Present Illness Chief complaint: Weakness, presyncope, pneumonia History of present illness: patient is a 74-year-old male with a past medical history of recurrent UTIs, BPH, history of hepatitis C, history of diabetes mellitus, history of neck surgery, CKD stage III, back pain, COPD and GERD who presented to the emergency room after syncopal episode. Patient reported that he had gone out to lab to get a blood draw, and started feeling dizzy and blacked out, patient does not remember hitting his head says that he blacked out, currently complaining of pain in his neck of note, patient has chronic low back and neck pain, takes morphine 60 mg twice daily and morphine 15 mg for breakthrough pain, managed by pain clinic. Denied any fever, nausea vomiting or diarrhea, or bleeding from head or face. In the ER patient was found to have hypoglycemia, fingerstick blood glucose in the 20s, received IV dextrose solutions. Patient will be admitted to the medical floor for further observation and management of hypoglycemia and pneumonia. Meds Home Medications and Allergies Home Medications ?Medication ?Instructions ?Recorded ?Confirmed ?Type glipizide 5 mg tablet 5 mg PO BID 08/28/21 12/26/24 History tizanidine 4 mg tablet 4 mg PO QID PRN Muscle Spasm 11/09/21 12/26/24 History finasteride 5 mg tablet 5 mg PO QDAY 11/15/22 12/26/24 History tamsulosin 0.4 mg capsule 0.4 mg PO BID 11/15/22 12/26/24 History clopidogrel 75 mg tablet (Plavix) 75 mg PO QDAY 06/10/23 12/26/24 History pregabalin 225 mg capsule 75 mg PO TID 06/10/23 12/26/24 History potassium citrate 15 mEq (1,620 15 meq PO TID 08/13/23 12/26/24 History mg) tablet,extended release albuterol sulfate 90 mcg/actuation 1 puff inhalation BID PRN Wheezing 08/22/23 12/26/24 History aerosol inhaler morphine 15 mg tablet,extended 15 mg PO BID PRN Pain (Scale Score 08/22/23 12/26/24 History release 4-6) morphine 30 mg tablet,extended 30 mg PO BID PRN Pain (Scale Score 08/22/23 12/26/24 History release 7-10) atorvastatin 20 mg tablet (Lipitor) 20 mg PO QDAY 10/04/23 12/26/24 History fluticasone furoate 200 1 inh inhalation QDAY 04/03/24 12/26/24 History mcg-vilanterol 25 mcg/dose inhalation powder (Breo Ellipta) pantoprazole 20 mg tablet,delayed 20 mg PO QDAY 04/03/24 12/26/24 History release (Protonix) morphine 60 mg tablet,extended 60 mg PO BID 12/26/24 12/26/24 History release pantoprazole 40 mg tablet,delayed 40 mg PO QAM 12/26/24 12/26/24 History release (Protonix) Allergies Allergy/AdvReac Type Severity Reaction Status Date / Time alprazolam Allergy Severe Agitated Verified 08/20/24 11:34 dicyclomine (From Bentyl) Allergy Severe Vomiting Verified 08/20/24 11:34 metronidazole (From Flagyl) Allergy Severe Vomiting Verified 08/20/24 11:34 shellfish derived Allergy Severe Vomiting Verified 08/20/24 11:34 Benzodiazepines AdvReac Severe ALTERS Verified 08/20/24 11:34 BEHAVIOR Exam Vital Signs Temp Pulse Resp BP Pulse Ox O2 Del Method O2 Flow Rate 36.6 C 67 16 117/64 90 L Room Air 2 12/27/24 04:00 12/27/24 04:00 12/27/24 04:00 12/27/24 04:00 12/27/24 04:00 12/27/24 04:00 12/26/24 20:00 Results: Labs 12/27/24 07:04 12/27/24 07:04 Labs: Short CBC 12/26/24 Range/Units 15:27 WBC 19.2 H (3.8-10.6) Thou/mm3 Hgb 10.3 L (13.5-16.0) g/dL Hct 31.3 L (41.0-53.0) % Plt Count 175 (140-440) Thou/mm3 BMP 12/26/24 15:27 Sodium 137 Potassium 3.8 D Chloride 108 H Carbon Dioxide 24.6 BUN 32 H Creatinine 1.6 H Glucose 97 Calcium 8.2 L Cardiac Enzymes 12/26/24 Range/Units 15:27 Troponin I < 0.020 (0.0-0.045) ng/mL Liver Function 12/26/24 Range/Units 15:27 Total Bilirubin 0.3 (0.3-1.2) mg/dL Direct Bilirubin 0.1 (0.0-0.3) mg/dL AST 18 (0-34) U/L ALT 9 L (10-49) U/L Alkaline Phosphatase 70 (46-116) U/L Albumin 3.6 (3.4-4.8) gm/dL Urine 12/26/24 Range/Units 17:48 Urine Color Lt-Yellow (Lt Yel-Yel) Urine Clarity Clear (Clear/Hazy) Urine pH 6.0 (5.0-7.0) Ur Specific [place] 1.020 (1.001-1.035) Urine Protein 1+ A (Neg - Trace) Urine Glucose (UA) 1+ A (Negative) Assessment & Plan Assessment and plan (1) Syncope and collapse: Status: Acute (2) Pneumonia: Status: Acute (3) NICK (acute kidney injury): Status: Acute (4) Hypoglycemia: Status: Acute (5) Chronic pain: Status: Acute (6) Leukocytosis: Status: Acute (7) History of COPD: Status: Acute (8) History of diabetes mellitus: Status: Acute Additional Assessment & Plan Additional Plan: Patient seen and examined with resident physician Dr. Thompson. Note reviewed, agree with findings and recommendations. Patient alert and awake. Admitted for significant hypoglycemia. Glipizide was discontinued. D5W was initiated. Will monitor closely. Antibiotics given for pneumonia. Quality Measures Quality Measures none Advance care planning discussed with:: patient Documented by User: Eladio Thompson MD 12/27/24 11:44 History of Present Illness History of Present Illness History of present illness: Neurology patient is a 74-year-old male with a past medical history of recurrent UTIs, BPH, history of hepatitis C, history of diabetes mellitus, history of neck surgery, CKD stage III, back pain, COPD and GERD who presented to the emergency room after syncopal episode. Patient reported that he had gone out to lab to get a blood draw, and started feeling dizzy and blacked out, patient does not remember hitting his head says that he blacked out, currently complaining of pain in his neck of note, patient has chronic low back and neck pain, takes morphine 60 mg twice daily and morphine 15 mg for breakthrough pain, managed by pain clinic. Denied any fever, nausea vomiting or diarrhea, or bleeding from head or face. In the ER patient was found to have hypoglycemia, fingerstick blood glucose in the 20s, received IV dextrose solutions. Patient will be admitted to the medical floor for further observation and management of hypoglycemia and pneumonia. Review of Systems Review of Systems Systems Reviewed: All systems reviewed, normal except as documented Past Medical History Past Medical History NEUROLOGIC: Negative Neurological Disorders or Seizures CARDIAC: Positive Cardiac Disorders, Coronary Artery Disease, Hypercholesterolemia and Hypertension; Negative Congestive Heart Failure RESPIRATORY: Positive Chronic Obstructive Pulmonary Disease (COPD), Asthma, Pneumonia and Smoking GASTROINTESTINAL: Positive Gastrointestinal Disorders, Hepatitis, Hiatal Hernia and Hemorrhoids GENITOURINARY: Positive Genitourinary Disorders, Kidney Stones and Benign Prostatic Hyperplasia; Negative Renal Disease MUSCULOSKELETAL: Positive Musculoskeletal Disorders, Myasthenia Gravis, Arthritis, Osteoporosis and Degenerative Disk Disease ENT: Positive Cataracts and Deafness ENDOCRINE: Positive Endocrine Disorders and Diabetes Mellitus Type 2; Negative Diabetes Mellitus Type 1 HEMATOLOGIC: Negative Blood Disorders or Sickle Cell Disease PSYCHO/SOCIAL: Positive Depression OTHER HISTORY: Positive Hospitalization, Falls and Cancer; Negative Autoimmune Disease, Down Syndrome, Developmental Delay, Shingles, Blood Transfusions or Anesthesia Reactions Family History FAMILY HISTORY: Negative Family Neurologic Problems, Family Psychiatric Problems, Family Respiratory Disorders, Family Cardiac Disorders, Family Gastrointestinal Problems, Family Cancer, Family Surgery or Family Anesthesia Reaction Surgical History SURGICAL: Positive Vascular Surgery, Coronary Stent, Angiogram, Endocrine Surgery, Abdominal Surgery, Gastrostomy, Nephrectomy and Joint Replacement Social History SMOKING STATUS: Heavy (> 1 pack/day) SECOND HAND EXPOSURE: No SUBSTANCE USE: does not use Meds Home Medications and Allergies Home Medications ?Medication ?Instructions ?Recorded ?Confirmed ?Type glipizide 5 mg tablet 5 mg PO BID 08/28/21 12/26/24 History tizanidine 4 mg tablet 4 mg PO QID PRN Muscle Spasm 11/09/21 12/26/24 History finasteride 5 mg tablet 5 mg PO QDAY 11/15/22 12/26/24 History tamsulosin 0.4 mg capsule 0.4 mg PO BID 11/15/22 12/26/24 History clopidogrel 75 mg tablet (Plavix) 75 mg PO QDAY 06/10/23 12/26/24 History pregabalin 225 mg capsule 75 mg PO TID 06/10/23 12/26/24 History potassium citrate 15 mEq (1,620 15 meq PO TID 08/13/23 12/26/24 History mg) tablet,extended release albuterol sulfate 90 mcg/actuation 1 puff inhalation BID PRN Wheezing 08/22/23 12/26/24 History aerosol inhaler morphine 15 mg tablet,extended 15 mg PO BID PRN Pain (Scale Score 08/22/23 12/26/24 History release 4-6) morphine 30 mg tablet,extended 30 mg PO BID PRN Pain (Scale Score 08/22/23 12/26/24 History release 7-10) atorvastatin 20 mg tablet (Lipitor) 20 mg PO QDAY 10/04/23 12/26/24 History fluticasone furoate 200 1 inh inhalation QDAY 04/03/24 12/26/24 History mcg-vilanterol 25 mcg/dose inhalation powder (Breo Ellipta) pantoprazole 20 mg tablet,delayed 20 mg PO QDAY 04/03/24 12/26/24 History release (Protonix) morphine 60 mg tablet,extended 60 mg PO BID 12/26/24 12/26/24 History release pantoprazole 40 mg tablet,delayed 40 mg PO QAM 12/26/24 12/26/24 History release (Protonix) Allergies Allergy/AdvReac Type Severity Reaction Status Date / Time alprazolam Allergy Severe Agitated Verified 08/20/24 11:34 dicyclomine (From Bentyl) Allergy Severe Vomiting Verified 08/20/24 11:34 metronidazole (From Flagyl) Allergy Severe Vomiting Verified 08/20/24 11:34 shellfish derived Allergy Severe Vomiting Verified 08/20/24 11:34 Benzodiazepines AdvReac Severe ALTERS Verified 08/20/24 11:34 BEHAVIOR Results: Labs 12/27/24 07:04 12/27/24 07:04 Assessment & Plan Assessment and plan (1) Syncope and collapse: Status: Acute Assessment and plan: Complaining of dizziness, unsteady gait, patient remembers passing out but does not remember if he hit his head or not, was found on the floor. Syncope likely precipitated by hypoglycemia as fingerstick glucose was 29, following IV dextrose, patient's mental status improved, currently ANO x 3. ? Will get CT head to rule out trauma ? Fingerstick glucose monitoring ? Discontinue glipizide on discharge. (2) Pneumonia: Status: Acute Assessment and plan: Patient denied fever, but endorsed cough productive of whitish sputum, chest x-ray reported pneumonia in the left lower zone. Noted leukocytosis, now downtrending WBC count 22,000 on admission, now WBC 14.6. ? IV ceftriaxone ? IV azithromycin ? Holding off on blood cultures patient had already received antibiotic in the emergency room. (3) NICK (acute kidney injury): Status: Acute Assessment and plan: Noted acute kidney injury, creatinine 1.6, likely secondary to prerenal azotemia following dehydration. Noted improvement in serum creatinine after IV fluids. Serum creatinine improved to 1.1, urine output 400 mL overnight, will continue IV fluids. Encourage oral hydration. (4) Hypoglycemia: Status: Acute Assessment and plan: Likely secondary to sulfonylurea, patient takes glipizide at home, fingerstick blood glucose in the emergency room 29, later improved after IV dextrose. ? Discontinue glipizide ? Insulin per sliding scale ? Fingerstick glucose monitoring (5) Chronic pain: Status: Acute Assessment and plan: Patient has chronic neck and low back pain, is established with pain clinic, takes oral morphine 60 mg twice daily, and oral morphine 15 mg as needed for breakthrough pain. Also takes pregabalin. ? Resume home medications after med rec reconciled ? Morphine 60 mg twice daily ? Morphine IR 15 mg as needed for breakthrough pain ? Pregabalin 75 mg 3 times daily (6) Leukocytosis: Status: Acute Assessment and plan: Secondary to pneumonia, now improving following antibiotics, holding off on blood cultures as patient had already received antibiotics, currently afebrile. (7) History of COPD: Status: Acute Assessment and plan: Currently well-controlled, no acute respiratory distress ?DuoNebs as needed, antibiotics for pneumonia (8) History of diabetes mellitus: Status: Acute Assessment and plan: Patient was on sulfonylurea, leading to hypoglycemia. A1c 6.8%, ?Insulin sliding scale ? IV dextrose as needed ? Fingerstick glucose monitoring. ? Will discontinue glipizide on discharge.
[2024-12-26 19:46] VITALS: BMI 19.8
[2024-12-26 20:00] VITALS: BP 158/89; PULSE 68; RESP 19; TEMP 36.4; O2SAT 99
[2024-12-27] VITALS (10 sets, daily range): BP systolic 99–152; BP diastolic 48–68; PULSE 63–97; RESP 16–18; TEMP 36.3–36.7; O2SAT 90–96
[2024-12-27] MEDS: DEXTROSE 5%-NS 1,000 ML 100 ML IV (03:32)
[2024-12-27] MEDS: PREGABALIN 75 MG CAPSULE PO ×3 (07:10→21:41)
[2024-12-27] MEDS: cefTRIAXone/D5w 1gm IV premix 1 GM/50 ML BAG IV (07:11)
[2024-12-27 07:22] LABS: Basophils % (Auto) 0 % (0-2.5); Eosinophils # (Auto) 0.2 Thou/mm3 (0.0-0.5); Eosinophils % (Auto) 1 % (0-10); Hematocrit 35.3 % (41.0-53.0); Hemoglobin 11.8 g/dL (13.5-16.0); Immature Granulocytes % (Auto) 0 % (0-0); Immature Granulocytes Auto 0.06 Thou/mm3 (0.00-0.00); Lymphocytes # (Auto) 1.7 Thou/mm3 (1.0-4.8); Lymphocytes % (Auto) 12 % (10-50); Mean Corpuscular HGB Conc 33.4 g/dl (31.0-37.0); Mean Corpuscular Volume 90 fL (80-100); Monocytes # (Auto) 1.2 Thou/mm3 (0.0-0.8); Monocytes % (Auto) 9 % (0-12); Neutrophils # (Auto) 11.4 Thou/mm3 (1.8-7.7); Neutrophils % (Auto) 78 % (37-80); Nucleated Red Blood Cell % 0 /100 WBC (0); Platelet Count 174 Thou/mm3 (140-440); RDW Standard Deviation 49.6 fL (35.1-43.9); Red Blood Count 3.93 Miln/mm3 (4.50-5.90); White Blood Count 14.6 Thou/mm3 (3.8-10.6)
[2024-12-27] MEDS: Morphine Sulf 15 MG TABCR PO ×2 (07:34→19:02)
[2024-12-27 07:50] LABS: Alanine Aminotransferase 8 U/L (10-49); Albumin, Serum 3.3 gm/dL (3.4-4.8); Albumin/Globulin Ratio 1.2 (1.2-2.2); Alkaline Phosphatase 67 U/L (46-116); Anion Gap 5 (7-16); Aspartate Amino Transferase 14 U/L (0-34); BUN/Creatinine Ratio 23 Ratio (12-20); Bilirubin,Total 0.3 mg/dL (0.3-1.2); Blood Urea Nitrogen 25 mg/dL (9-23); Calcium 7.6 mg/dL (8.3-10.6); Calcium (Corrected) 8.2 mg/dL (8.5-10.1); Carbon Dioxide 23.1 mMol/L (20.0-31.0); Chloride 112 mMol/L (98-107); Creatinine (Component) 1.1 mg/dL (0.6-1.3); Estimated Creatinine Clearance 48.5 mL/min (>60); Globulin 2.8 gm/dL (2.3-3.5); Glucose 175 mg/dL (74-106); Osmolality,Calculated 287 (275-295); Potassium 4.3 mMol/L (3.4-5.1); Sodium 140 mMol/L (136-145); Total Protein 6.1 gm/dL (5.7-8.2); eGFR > 60 See Note
[2024-12-27] MEDS: PANTOPRAZOLE 40 MG TABLET PO (08:56)
[2024-12-27] MEDS: FINASTERIDE 5 MG TABLET PO (08:56)
[2024-12-27] MEDS: CLOPIDOGREL BISULFATE 75 MG TABLET PO (08:56)
[2024-12-27] MEDS: INSULIN LISPRO (AdmeLOG) 1 UNIT/0.01 ML UNIT SC ×4 (08:56→21:40)
[2024-12-27] MEDS: AZITHROMYCIN INJ 500 MG in SODIUM CHLORIDE 0.9% 250 ML 250 ML 250 MG IV (08:56)
[2024-12-27] MEDS: TAMSULOSIN HCL 0.4 MG CAPSULE PO ×2 (08:56→21:41)
[2024-12-27] MEDS: MORPHINE SULF 30 MG TABCR 60 MG PO ×2 (09:23→21:41)
--- NOTE | 2024-12-27 11:38 | XR_ITS ---
Examination: CT brain head without contrast. 2-D sagittal coronal reconstructions Date and time of exam:December 27, 2024 12:03 PM Comparison September 22, 2023 INDICATIONS: Headaches syncopal episode today CTDI: vol (mGy):49 DLP: (mGycm):1042 Technique: Multiple CT axial sections of the brain have been obtained, 5 mm slice thickness. Contrast has not been administered. 2-D sagittal, coronal reconstructions have been obtained Low dose protocols were performed. One or more of the following dose reduction techniques were used; automated exposure control, adjustment of the mA and/or KV according to patient size, use of iterative reconstruction technique. Findings: No significant ventricular enlargement. Intra-axial or extra-axial hemorrhage density is not seen. No mass effect or midline shift Basal cisterns are not remarkable. Fourth ventricle is midline. Cranial vault intact. Impression: Negative for acute hemorrhage, mass effect or midline shift Advise clinical correlation and follow-up accordingly
[2024-12-27] MEDS: HEPARIN SOD INJ 5000 UNIT/ML VIAL SC ×2 (14:33→21:40)
[2024-12-27] MEDS: POTASSIUM CHLORIDE 10% 20 MEQ/15 ML UDC 15 MEQ PO (14:33)
--- NOTE | 2024-12-27 14:58 | PC.NURSE ---
call to Dr. Lea, pt is asking for 15 mg TID, but Dr. Lea is denying this at this time.
[2024-12-27] MEDS: ALBUTEROL/IPRATROPIUM (Duoneb) RT SOL 3 ML NEBU INH ×2 (15:01→22:55)
--- NOTE | 2024-12-27 15:53 | PC.SS ---
Patient is alert/oriented. He resides with his . Independent with ADL's. Admitted for pneumonia. Patient has hx: COPD. No 02. PCP: Dr. Lae. Patient follows up with Dr. Washington- vascular surgeon and Dr Carmona. Patient uses a cane and a walker. Patient drives himself to appointments. Pharmacy: [facility]. Dc plan is to return home. is alt medical decision maker. Alt medical decision maker: Rosario,
--- NOTE | 2024-12-27 16:00 | ESPR_ITS ---
Documentation for date of: 12/27/24 Subjective Subjective Interval history: patient is a 74-year-old male with a past medical history of recurrent UTIs, BPH, history of hepatitis C, history of diabetes mellitus, history of neck surgery, CKD stage III, back pain, COPD and GERD who presented to the emergency room after syncopal episode. Patient reported that he had gone out to lab to get a blood draw, and started feeling dizzy and blacked out, patient does not remember hitting his head says that he blacked out, currently complaining of pain in his neck of note, patient has chronic low back and neck pain, takes morphine 60 mg twice daily and morphine 15 mg for breakthrough pain, managed by pain clinic. Denied any fever, nausea vomiting or diarrhea, or bleeding from head or face. In the ER patient was found to have hypoglycemia, fingerstick blood glucose in the 20s, received IV dextrose solutions. Patient will be admitted to the medical floor for further observation and management of hypoglycemia and pneumonia. 12/27/2024 patient is evaluated at bedside, complaining of severe pain in his neck, he was anxious that he is not getting his home dose of morphine, checked cures, patient is established with pain clinic, gets morphine 60 mg twice daily and morphine 15 mg twice daily for breakthrough pain as needed. Noted improvement in patient's labs, WBC count 14.6, slight worsening of renal function noted in morning labs, BUN 32, creatinine 1.6. Currently on IV antibiotics for treatment of pneumonia. Holding home medication glipizide due to hypoglycemia. Will order CT scan brain to rule out head trauma following syncope. Exam Vital Signs Temp Pulse Resp BP Pulse Ox O2 Del Method O2 Flow Rate 97.4 F 81 16 132/68 H 96 Room Air 2 12/27/24 12:12/27/24 15:12/27/24 15:12/27/24 12:12/27/24 15:12/27/24 12:12/26/24 20:00 Narrative Exam General: AOx3, cooperative Skin: Intact, no cyanosis or edema noted. HEENT: Atraumatic/normocephalic, PAUL, neck supple Heart: RRR, S1 and S2 without clicks or murmurs Lungs: Left-sided basal crackles Abdomen: Soft, nontender. Bowel sounds present . Vascular: Peripheral pulses palpable Neuro: No focal neurological deficits noted. Objective Labs 12/27/24 07:04 12/27/24 07:04 Labs: Laboratory Results - last 24 hr 12/26/24 12/26/24 12/27/24 15:27 17:48 07:04 WBC 14.6 H RBC 3.93 L Hgb 11.8 L Hct 35.3 L MCV 90 MCH 30.0 MCHC 33.4 RDW Std Deviation 49.6 H Plt Count 174 Neut % (Auto) 78 Lymph % (Auto) 12 [place] % (Auto) 9 Eos % (Auto) 1 Baso % (Auto) 0 Neut # (Auto) 11.4 H Lymph # (Auto) 1.7 [place] # (Auto) 1.2 H Eos # (Auto) 0.2 Baso # (Auto) 0.0 Immature Gran # (Auto) 0.06 H Absolute Nucleated RBC 0.00 Immature Gran % 0 Nucleated RBC % 0 ESR 59 H Sodium 137 140 Potassium 3.8 D 4.3 D Chloride 108 H 112 H Carbon Dioxide 24.6 23.1 Anion Gap 4 L 5 L BUN 32 H 25 H Creatinine 1.6 H 1.1 D Estim Creat Clear Calc 32.2 L 48.5 L eGFR 45 L > 60 BUN/Creatinine Ratio 20 23 H Glucose [address] Glu mg/dL 131 Hemoglobin A1c 6.2 H Calculated Osmolality 280 287 Calcium 8.2 L 7.6 L Corrected Calcium 8.5 8.2 L Magnesium 1.9 Total Bilirubin 0.3 0.3 Direct Bilirubin 0.1 AST 18 14 ALT 9 L 8 L Alkaline Phosphatase 70 67 Troponin I < 0.020 C-Reactive Prot, Quant 13.6 H Total Protein 6.6 6.1 Albumin 3.6 3.3 L Globulin 3.0 2.8 Albumin/Globulin Ratio 1.2 1.2 Amylase 44 Lipase 23 Procalcitonin 1.16 H TSH 1.00 Free T4 0.96 Ur Collection Type Clean Catch Urine Color Lt-Yellow Urine Clarity Clear Urine pH 6.0 Ur Specific [place] 1.020 Urine Protein 1+ A Urine Glucose (UA) 1+ A Urine Ketones Negative Urine Blood Trace Urine Nitrite Negative Urine Bilirubin Negative Urine Urobilinogen (Auto) Negative Ur Leukocyte Esterase Positive Urine RBC 4 H Urine WBC 72 H Ur Squamous Epith Cells 1 Urine Bacteria None Ur Culture Indicated? Yes Ethyl Alcohol < 10.0 Quality Measures Quality Measures none Advance care planning discussed with:: patient Assessment & Plan Assessment Current Active Medications: Generic Name Dose Route Start Last Admin Trade Name Freq PRN Reason Stop Dose Admin Albuterol 1 puff 12/27/24 06:15 Albuterol Inh 8 Gm INH 01/26/25 06:14 BID PRN Wheezing Albuterol/Ipratropium 3 ml 12/27/24 15:00 12/27/24 15:01 Albuterol/Ipratropium (Duoneb) Rt Jolene 3 Ml Nebu INH 01/26/25 14:59 3 ml Q8HRRT WILTON Administration Atorvastatin Calcium 20 mg 12/27/24 21:00 Atorvastatin Calcium 20 Mg Tablet PO 01/26/25 20:59 HS WILTON Clopidogrel Bisulfate 75 mg 12/27/24 09:00 12/27/24 08:56 Clopidogrel Bisulfate 75 Mg Tablet PO 01/26/25 08:59 75 mg QDAY WILTON Administration Dextrose 25 ml 12/27/24 06:20 Dextrose 50%-Water Inj 50 Ml Syringe IV 01/26/25 06:19 Q15MIN PRN BG 50-70 responsive npo pt Dextrose 50 ml 12/27/24 06:20 Dextrose 50%-Water Inj 50 Ml Syringe IV 01/26/25 06:19 Q15MIN PRN BG <50 OR BG <70 & pt unresponsive Finasteride 5 mg 12/27/24 09:00 12/27/24 08:56 Finasteride 5 Mg Tablet PO 01/26/25 08:59 5 mg QDAY WILTON Administration Glucagon 1 mg 12/27/24 06:20 Glucagon Inj 1 Mg Vial IM Q15MIN PRN BG <70, and no IV access Heparin Sodium (Porcine) 5,000 unit 12/27/24 14:00 12/27/24 14:33 Heparin Sod Inj 5000 Unit/Ml Vial SC 01/10/25 13:59 5,000 unit Q8HR WILTON Administration Dextrose/Sodium Chloride 1,000 mls @ 100 mls/hr 12/26/24 17:45 12/27/24 03:32 D5-Ns IV 01/25/25 17:44 100 mls/hr .Q10H WILTON Administration Ceftriaxone Sodium/Dextrose 1 gm in 50 mls @ 100 mls/hr 12/27/24 06:22 12/27/24 07:11 Rocephin/D5w 1gm Iv Premix IV 01/03/25 06:21 100 mls/hr QDAY WILTON Administration Azithromycin 500 mg/ Sodium 250 mls @ 250 mls/hr 12/27/24 09:00 12/27/24 08:56 Chloride IV 01/03/25 08:59 250 mls/hr QDAY WILTON Administration Insulin Human Lispro 0 unit 12/27/24 07:30 12/27/24 12:49 Insulin Lispro (Admelog) 1 Unit/0.01 Ml Unit SC 01/26/25 07:29 2 unit AC WILTON Administration Protocol Morphine Sulfate 15 mg 12/27/24 06:15 12/27/24 07:34 Morphine Sulf 15 Mg Tabcr PO 01/01/25 06:14 15 mg BID PRN Administration Pain (Scale Score 4-6) Protocol Morphine Sulfate 60 mg 12/27/24 09:00 12/27/24 09:23 Morphine Sulf 30 Mg Tabcr PO 01/01/25 08:59 60 mg BID WILTON Administration Protocol Home Medication- 1 gm 12/27/24 06:30 12/27/24 07:13 Please Speak With PO 01/26/25 06:29 Not Given Patient Caregiver To BID WILTON Have Rx Brought To [facility] Pantoprazole Sodium 40 mg 12/27/24 09:00 12/27/24 08:56 Pantoprazole 40 Mg Tablet PO 01/26/25 08:59 40 mg QAM WILTON Administration Potassium Chloride 15 meq 12/27/24 14:00 12/27/24 14:33 Potassium Chloride 10% 20 Meq/15 Ml Udc PO 01/26/25 13:59 15 meq TID WILTON Administration Pregabalin 75 mg 12/27/24 06:30 12/27/24 14:33 Pregabalin 75 Mg Capsule PO 01/26/25 06:29 75 mg TID WILTON Administration Fluticasone/Salmeterol 1 puff 12/27/24 07:00 12/27/24 07:35 Fluticasone/Salmeterol 250/50 14 Dose Inh INH 01/26/25 06:59 Not Given [id number] WILTON Sennosides 2 tab 12/27/24 09:00 Senna Tablet PO 01/26/25 08:59 QDAY PRN CONSTIPATION Protocol Tamsulosin HCl 0.4 mg 12/27/24 09:00 12/27/24 08:56 Tamsulosin Hcl 0.4 Mg Capsule PO 01/26/25 08:59 0.4 mg BID WILTON Administration Plan (1) Syncope and collapse: Status: Acute Assessment and plan: Complaining of dizziness, unsteady gait, patient remembers passing out but does not remember if he hit his head or not, was found on the floor. Syncope likely precipitated by hypoglycemia as fingerstick glucose was 29, following IV dextrose, patient's mental status improved, currently ANO x 3. ? Will get CT head to rule out trauma ? Fingerstick glucose monitoring ? Discontinue glipizide on discharge. (2) Pneumonia: Status: Acute Assessment and plan: Patient denied fever, but endorsed cough productive of whitish sputum, chest x- ray reported pneumonia in the left lower zone. Noted leukocytosis, now downtrending WBC count 22,000 on admission, now WBC 14.6. ? IV ceftriaxone ? IV azithromycin ? Holding off on blood cultures patient had already received antibiotic in the emergency room. (3) NICK (acute kidney injury): Status: Acute Assessment and plan: Noted acute kidney injury, creatinine 1.6, likely secondary to prerenal azotemia following dehydration. Noted improvement in serum creatinine after IV fluids. Serum creatinine improved to 1.1, urine output 400 mL overnight, will continue IV fluids. Encourage oral hydration. (4) Hypoglycemia: Status: Acute Assessment and plan: Likely secondary to sulfonylurea, patient takes glipizide at home, fingerstick blood glucose in the emergency room 29, later improved after IV dextrose. ? Discontinue glipizide ? Insulin per sliding scale ? Fingerstick glucose monitoring (5) Chronic pain: Status: Acute Assessment and plan: Patient has chronic neck and low back pain, is established with pain clinic, takes oral morphine 60 mg twice daily, and oral morphine 15 mg as needed for breakthrough pain. Also takes pregabalin. ? Resume home medications after med rec reconciled ? Morphine 60 mg twice daily ? Morphine IR 15 mg as needed for breakthrough pain ? Pregabalin 75 mg 3 times daily (6) Leukocytosis: Status: Acute Assessment and plan: Secondary to pneumonia, now improving following antibiotics, holding off on blood cultures as patient had already received antibiotics, currently afebrile. (7) History of COPD: Status: Acute Assessment and plan: Currently well-controlled, no acute respiratory distress ?DuoNebs as needed, antibiotics for pneumonia (8) History of diabetes mellitus: Status: Acute Assessment and plan: Patient was on sulfonylurea, leading to hypoglycemia. A1c 6.8%, ?Insulin sliding scale ? IV dextrose as needed ? Fingerstick glucose monitoring. ? Will discontinue glipizide on discharge. Plan of care discussed with Dr. Venu Thompson Pgy2 Attending Provider Attestation/Addendum Patient seen and examined with resident physician Dr. Thompson Note reviewed, agree with findings and recommendations. On ABX- pneumonia
[2024-12-27] MEDS: INSULIN GLARGINE (Lantus) 5 UNIT/0.05 ML (PER 5 UNITS) SC (18:17)
[2024-12-27] MEDS: ATORVASTATIN CALCIUM 20 MG TABLET PO (21:41)
[2024-12-27] MEDS: FLUTICASONE/SALMETEROL 250/50 14 DOSE INH 1 PUFF INH (23:06)
[2024-12-28] VITALS: BP 115/58; PULSE 72; RESP 16; TEMP 36.3; O2SAT 92
[2024-12-28 04:00] VITALS: BP 127/65; PULSE 71; RESP 20; TEMP 36.4; O2SAT 91
[2024-12-28] MEDS: PREGABALIN 75 MG CAPSULE PO (05:30)
[2024-12-28] MEDS: HEPARIN SOD INJ 5000 UNIT/ML VIAL SC (05:32)
[2024-12-28 05:44] LABS: Basophils # (Auto) 0.1 Thou/mm3 (0.0-0.2); Basophils % (Auto) 0 % (0-2.5); Eosinophils # (Auto) 0.2 Thou/mm3 (0.0-0.5); Eosinophils % (Auto) 2 % (0-10); Hematocrit 30.7 % (41.0-53.0); Hemoglobin 10.1 g/dL (13.5-16.0); Immature Granulocytes % (Auto) 1 % (0-0); Immature Granulocytes Auto 0.09 Thou/mm3 (0.00-0.00); Lymphocytes # (Auto) 1.9 Thou/mm3 (1.0-4.8); Lymphocytes % (Auto) 16 % (10-50); Mean Corpuscular HGB Conc 32.9 g/dl (31.0-37.0); Mean Corpuscular Hemoglobin 30.1 pg (25.0-35.0); Mean Corpuscular Volume 91 fL (80-100); Monocytes # (Auto) 1.1 Thou/mm3 (0.0-0.8); Monocytes % (Auto) 10 % (0-12); Neutrophils # (Auto) 8.1 Thou/mm3 (1.8-7.7); Neutrophils % (Auto) 71 % (37-80); Nucleated Red Blood Cell % 0 /100 WBC (0); Platelet Count 172 Thou/mm3 (140-440); RDW Standard Deviation 51.2 fL (35.1-43.9); Red Blood Count 3.36 Miln/mm3 (4.50-5.90); White Blood Count 11.4 Thou/mm3 (3.8-10.6)
[2024-12-28 06:33] LABS: Alanine Aminotransferase 8 U/L (10-49); Albumin, Serum 3.1 gm/dL (3.4-4.8); Albumin/Globulin Ratio 1.1 (1.2-2.2); Alkaline Phosphatase 64 U/L (46-116); Anion Gap 6 (7-16); Aspartate Amino Transferase 10 U/L (0-34); BUN/Creatinine Ratio 16 Ratio (12-20); Bilirubin,Total 0.2 mg/dL (0.3-1.2); Blood Urea Nitrogen 19 mg/dL (9-23); Calcium 7.6 mg/dL (8.3-10.6); Calcium (Corrected) 8.3 mg/dL (8.5-10.1); Carbon Dioxide 23.1 mMol/L (20.0-31.0); Chloride 112 mMol/L (98-107); Creatinine (Component) 1.2 mg/dL (0.6-1.3); Estimated Creatinine Clearance 44.4 mL/min (>60); Globulin 2.7 gm/dL (2.3-3.5); Glucose 164 mg/dL (74-106); Osmolality,Calculated 287 (275-295); Potassium 4.4 mMol/L (3.4-5.1); Sodium 141 mMol/L (136-145); Total Protein 5.8 gm/dL (5.7-8.2); eGFR > 60 See Note
[2024-12-28 06:58] VITALS: PULSE 73; RESP 18; O2SAT 97
[2024-12-28] MEDS: ALBUTEROL/IPRATROPIUM (Duoneb) RT SOL 3 ML NEBU INH (06:58)
[2024-12-28] MEDS: INSULIN LISPRO (AdmeLOG) 1 UNIT/0.01 ML UNIT SC (07:29)
[2024-12-28 08:00] VITALS: BP 131/89; PULSE 86; RESP 18; TEMP 36.2; O2SAT 94
[2024-12-28] MEDS: SENNA TABLET 2 TAB PO (08:15)
[2024-12-28] MEDS: MORPHINE SULF 30 MG TABCR 60 MG PO (08:16)
[2024-12-28] MEDS: FINASTERIDE 5 MG TABLET PO (08:16)
[2024-12-28] MEDS: CLOPIDOGREL BISULFATE 75 MG TABLET PO (08:16)
[2024-12-28] MEDS: AZITHROMYCIN INJ 500 MG in SODIUM CHLORIDE 0.9% 250 ML 250 ML 250 MG IV (08:16)
[2024-12-28] MEDS: PANTOPRAZOLE 40 MG TABLET PO (08:16)
[2024-12-28] MEDS: cefTRIAXone/D5w 1gm IV premix 1 GM/50 ML BAG IV (08:17)
[2024-12-28] MEDS: TAMSULOSIN HCL 0.4 MG CAPSULE PO (08:18)
--- NOTE | 2024-12-28 08:41 | PD.RESDS ---
Planned Discharge Date 12/28/24 DS: Providers Provider Date of admission: 12/26/24 17:37 Primary care physician: Physician No Primary/Family Admitting Provider: Maikol Lea MD Attending Provider on Admission: Maikol Lea MD Attending Provider on DC: Eladio Thompson MD Discharging Provider: Eladio Thompson MD DS: Diagnosis Problem List Completed Was Problem List Reviewed/Reconciled?: Yes Hospital Course Hospital Course Hospital course: patient is a 74-year-old male with a past medical history of recurrent UTIs, BPH, history of hepatitis C, history of diabetes mellitus, history of neck surgery, CKD stage III, back pain, COPD and GERD who presented to the emergency room after syncopal episode. Patient was admitted with syncope and acute encephalopathy secondary to hypoglycemia, initial fingerstick blood glucose in the low 20s, likely secondary to glipizide. Patient was also found to have pneumonia, started on IV antibiotics ceftriaxone and azithromycin initially, will be discharged on p.o. antibiotics. Augmentin. Glipizide to be discontinued on discharge. Patient does not agree with the treatment plan. #Syncope #Acute encephalopathy #Hypoglycemia #Pneumonia #NICK #Chronic pain #History of COPD #History of diabetes mellitus Plan of care discussed with attending Status at Discharge Overall status at discharge: patient is progressing back to baseline Time Spent with Patient Time attestation: Total time spent providing and/or coordinating discharge services: Time spent: Greater than 30 minutes Exam Vital Signs Temp Pulse Resp BP Pulse Ox O2 Del Method O2 Flow Rate 97.1 F 86 18 131/89 H 94 L Room Air 2 12/28/24 08:00 12/28/24 08:00 12/28/24 08:00 12/28/24 08:00 12/28/24 08:00 12/28/24 04:00 12/26/24 20:00 Narrative Exam General: AOx3, cooperative Skin: Intact, no cyanosis or edema noted. HEENT: Atraumatic/normocephalic, PAUL, neck supple Heart: RRR, S1 and S2 without clicks or murmurs Lungs: Left-sided basal crackles Abdomen: Soft, nontender. Bowel sounds present . Vascular: Peripheral pulses palpable Neuro: No focal neurological deficits noted. Discharge Plan Plan Patient Disposition: HOME (Self Care) Care Plan Goals: Recommend to stop taking Glipizide 5mg due to concern for very low blood sugar / hypoglycemia. Start taking Januvia 50mg once daily instead for diabetes. Also continue antibiotic Augmentin 500mg for 5 more days for treatment of pneumonia. Follow up with Primary care physician with labs within 3-5 days of discharge. If symptoms persist or worsen, return to the Emergency Department. Prescriptions/Referrals Prescriptions/Med Rec: New Januvia 50 mg tablet 50 mg PO QDAY Qty: 30 0RF Continued tamsulosin 0.4 mg capsule 0.4 mg PO BID finasteride 5 mg tablet 5 mg PO QDAY tizanidine 4 mg tablet 4 mg PO QID PRN (Reason: Muscle Spasm) Patient Comments: TAKE ONE TABLET BY MOUTH FOUR TIMES DAILY FOR MUSCLE SPASMS pregabalin 225 mg capsule 75 mg PO TID Patient Comments: TAKE ONE CAPSULE BY MOUTH THREE TIMES A DAY clopidogrel [Plavix] 75 mg Tablet 75 mg PO QDAY methenamine hippurate 1 gram tablet 1 g PO BID Qty: 60 0RF Patient Comments: TAKE ONE TABLET BY MOUTH TWICE DAILY potassium citrate 15 mEq tablet extended release 15 meq PO TID Patient Comments: TAKE ONE TABLET BY MOUTH THREE TIMES DAILY morphine 15 mg tablet extended release 15 mg PO BID PRN (Reason: Pain (Scale Score 4-6)) Patient Comments: Not on patient active medication list. albuterol sulfate 90 mcg/actuation HFA aerosol inhaler 1 puff INHALATION BID PRN (Reason: Wheezing) Patient Comments: INHALE 1 PUFF BY MOUTH TWICE DAILY atorvastatin [Lipitor] 20 mg Tablet 20 mg PO QDAY fluticasone furoate-vilanterol [Breo Ellipta] 200-25 mcg/dose Blister With Device 1 inh INHALATION QDAY pantoprazole [Protonix] 40 mg tablet,delayed release (DR/EC) 40 mg PO QAM morphine 60 mg tablet extended release 60 mg PO BID Patient Comments: TAKE ONE TABLET BY MOUTH TWICE DAILY Discontinued glipizide 5 mg Tablet 5 mg PO BID morphine 30 mg tablet extended release 30 mg PO BID PRN (Reason: Pain (Scale Score 7-10)) pantoprazole [Protonix] 20 mg Tablet,Delayed Release (Dr/Ec) 20 mg PO QDAY Referrals: No Primary/Family,Physician [Primary Care Provider] - Patient/Caregiver Discharge Instructions Education Materials: Hypoglycemia (Low Blood Sugar), Blood Sugar Monitoring and ... Print Language: Georgian Stand Alone Forms: Vanessa Award Info., Patient Portal Info Letter Discharge Order Discharge Orders: Discharge (Routine); Ordered 12/28/24 Ordered By: Eladio Thompson Quality Discharge Quality Measures VTE prophylaxis MD Attestestation MD Attestation Patient seen and examined with resident physician Dr. Thompson. Note reviewed, agree with findings and recommendations. Will be discharged home on p.o. antibiotics.
== END 2024-12-28 11:47 | disposition home or self-care (01) | DRG 637 ==
LOC: SERX 17:37 → SERHOLD 17:47 → S3NX 19:46
PROVIDERS: Admitting Provider Internal Medicine; Emergency Provider Emergency Medicine; Visit Provider Internal Medicine
DX: E11.649 Type 2 diabetes mellitus with hypoglycemia without coma (principal); G93.41 Metabolic encephalopathy; J18.9 Pneumonia, unspecified organism; J44.0 Chronic obstructive pulmonary disease with (acute) lower respiratory infection; N17.9 Acute kidney failure, unspecified; E11.22 Type 2 diabetes mellitus with diabetic chronic kidney disease; N40.0 Benign prostatic hyperplasia without lower urinary tract symptoms; G89.29 Other chronic pain; N18.30 Chronic kidney disease, stage 3 unspecified; B19.20 Unspecified viral hepatitis C without hepatic coma; E86.0 Dehydration; M54.50 Low back pain, unspecified; K21.9 Gastro-esophageal reflux disease without esophagitis; M54.2 Cervicalgia; E78.00 Pure hypercholesterolemia, unspecified; I10 Essential (primary) hypertension; T38.3X5A Adverse effect of insulin and oral hypoglycemic [antidiabetic] drugs, initial encounter; F17.210 Nicotine dependence, cigarettes, uncomplicated; Z87.440 Personal history of urinary (tract) infections; Z90.5 Acquired absence of kidney; Z79.02 Long term (current) use of antithrombotics/antiplatelets; Z79.51 Long term (current) use of inhaled steroids; Z79.899 Other long term (current) drug therapy; Z79.84 Long term (current) use of oral hypoglycemic drugs; Z88.8 Allergy status to other drugs, medicaments and biological substances; Z91.013 Allergy to seafood
CPT/HCPCS: 36415; 70450; 71045; 80053; 80320; 81001; 82010; 82150; 82248; 83036; 83690; 83735; 84145; 84439; 84443; 84484; 85025; 85652; 86140; 87086; 87400; 87811; 93005; 94640; 94664; 96361; 96365; 96375; 99285; A9270; J0456; J0696; J1644; J1815; J2270; J2405; J7030; J7042; J7050; G0480

== ENCOUNTER → 2024-12-26 | Outpatient (CLI) | payer MEDICARE, MEDICAID, SELFPAY ==
[2024-12-26 10:56] LABS: Basophils % (Auto) 0 % (0-2.5); Eosinophils # (Auto) 0.1 Thou/mm3 (0.0-0.5); Eosinophils % (Auto) 0 % (0-10); Hematocrit 36.1 % (41.0-53.0); Hemoglobin 11.9 g/dL (13.5-16.0); Immature Granulocytes % (Auto) 1 % (0-0); Immature Granulocytes Auto 0.11 Thou/mm3 (0.00-0.00); Lymphocytes # (Auto) 1.7 Thou/mm3 (1.0-4.8); Lymphocytes % (Auto) 8 % (10-50); Mean Corpuscular Hemoglobin 29.7 pg (25.0-35.0); Mean Corpuscular Volume 90 fL (80-100); Monocytes # (Auto) 1.4 Thou/mm3 (0.0-0.8); Monocytes % (Auto) 6 % (0-12); Neutrophils # (Auto) 18.8 Thou/mm3 (1.8-7.7); Neutrophils % (Auto) 85 % (37-80); Nucleated Red Blood Cell % 0 /100 WBC (0); Platelet Count 189 Thou/mm3 (140-440); RDW Standard Deviation 50.1 fL (35.1-43.9); Red Blood Count 4.01 Miln/mm3 (4.50-5.90); White Blood Count 22.1 Thou/mm3 (3.8-10.6)
[2024-12-26 11:08] LABS: Glucose Estimated Average 131 mg/dL (80-131); Hemoglobin A1C 6.2 % Hgb (4.8-6.0)
[2024-12-26 11:17] LABS: AFP Non-Pregnant < 0.00 ng/mL (<8.10)
[2024-12-26 11:36] LABS: Alanine Aminotransferase 10 U/L (10-49); Albumin, Serum 3.8 gm/dL (3.4-4.8); Albumin/Globulin Ratio 1.2 (1.2-2.2); Alkaline Phosphatase 75 U/L (46-116); Anion Gap 7 (7-16); Aspartate Amino Transferase 18 U/L (0-34); BUN/Creatinine Ratio 23 Ratio (12-20); Bilirubin,Total 0.5 mg/dL (0.3-1.2); Blood Urea Nitrogen 32 mg/dL (9-23); Calcium 8.5 mg/dL (8.3-10.6); Calcium (Corrected) 8.7 mg/dL (8.5-10.1); Carbon Dioxide 25.3 mMol/L (20.0-31.0); Chloride 107 mMol/L (98-107); Cholesterol 89 mg/dL (132-200); Creatinine (Component) 1.4 mg/dL (0.6-1.3); Globulin 3.2 gm/dL (2.3-3.5); Glucose 106 mg/dL (74-106); HDL Cholesterol 30 mg/dL (40-60); LDL Cholesterol,Calculated 43 mg/dL (0-130); Osmolality,Calculated 284 (275-295); Potassium 4.6 mMol/L (3.4-5.1); Sodium 139 mMol/L (136-145); Triglycerides 82 mg/dL (30-150); eGFR 53 See Note
[2024-12-26 15:32] LABS: Collection Type, Urine Clean Catch
[2024-12-26 16:46] LABS: Bacteria,Urine Rare; Bilirubin,Urine Negative (Negative); Blood,Urine Negative (Negative); Clarity,Urine Turbid (Clear/Hazy); Color,Urine Yellow (Lt Yel-Yel); Glucose, Urine Negative (Negative); Ketones,Urine Negative (Negative); Leukocyte Esterase,Urine Positive (Negative); Nitrite,Urine Positive (Negative); PH,Urine 6.5 (5.0-7.0); Protein,Urine 1+ (Neg - Trace); RBC,Urine 4 /hpf (0-3); Renal Epithelial Cells,Urine 1 /hpf (0-5); Specific Gravity,Urine 1.023 (1.001-1.035); Squamous Epithelial Cell,Urine < 1 /hpf (0-5); Urobilinogen,Urine Negative mg/dL (0.0-1.0); WBC,Urine 188 /hpf (0-5)
[2024-12-26 16:49] LABS: Culture Indicated,Urine Yes
[2024-12-26 16:59] LABS: Creatinine MALB Rnd Ur 112 mg/dL (30-125); Microalbumin Creat Ratio 96 mg/gCrea (<30); Microalbumin, Random Urine 107 mg/L (0-300)
[2024-12-29 05:04] LABS: HCV RNA, PCR <15 NOT DETECTED IU/mL
[2024-12-31 06:59] LABS: HCV RNA, PCR Log IU <1.18 NOT DETECTED Log IU/mL
== END | disposition home or self-care (01) ==
PROVIDERS: PCP Internal Medicine; Referring Provider Specialist; Visit Provider Specialist
DX: E78.5 Hyperlipidemia, unspecified (principal); E11.8 Type 2 diabetes mellitus with unspecified complications; E43 Unspecified severe protein-calorie malnutrition; B18.2 Chronic viral hepatitis C
CPT/HCPCS: 36415; 80053; 80061; 81001; 82043; 82105; 82570; 83036; 85025; 87077; 87086; 87186; 87522

== ENCOUNTER → 2025-01-03 | Outpatient (CLI) | payer MEDICARE, MEDICAID, SELFPAY ==
--- NOTE | 2025-01-03 12:20 | XR_ITS ---
Examination: Bone densitometry Date and time of exam:January 03, 2025 1242 hours INDICATIONS: 74-year-old male with personal history hip fracture, personal history osteoporosis Technique: Lumbar spine and hip total bone mineralization values of an calculated. Peak reference and age match control results have been displayed. Findings: Lumbar spine total bone mineralization is1.491 gm/cm2. This is 3.6 standard deviations above peak reference. This is 4.6 standard deviations above age-matched controls. Hip total bone mineralization is 0.499 gm/cm2 This is 3.5 standard deviations below peak reference. This is 2.8 standard deviations below age-matched controls Impression: There is normal mineralization based on lumbar spine measurements. There is osteoporosis based on hip measurements Lumbar mineralization is increased 83.3% compared with March 09, 2022 Hip mineralization is decreased 11.5% compared with March 09, 2022
== END | disposition home or self-care (01) ==
PROVIDERS: PCP Internal Medicine; Referring Provider Internal Medicine; Visit Provider Internal Medicine
DX: M81.0 Age-related osteoporosis without current pathological fracture (principal)
CPT/HCPCS: 77080

== ENCOUNTER → 2025-01-16 | Outpatient (CLI) | payer MEDICARE, MEDICAID, SELFPAY ==
--- NOTE | 2025-01-16 10:30 | XR_ITS ---
Examination: Abdomen sonogram, Limited Date and time of exam: January 16, 2025 1039 hours INDICATIONS: Diagnosis chronic hepatitis C 10 years ago Technique: Real-time castro scale transabdominal sonographic images of the upper abdomen obtained. Findings: Absent gallbladder Normal common bile duct 0.1 cm Pancreas obscured by bowel gas Liver 12.1 cm irregular contour fatty infiltration Normal hepatopedal portal venous flow Patent IVC IMPRESSION: Normal common bile duct Liver irregular in contour, consistent with primary hepatocellular disease
== END | disposition home or self-care (01) ==
PROVIDERS: PCP Internal Medicine; Referring Provider Specialist; Visit Provider Specialist
DX: B18.2 Chronic viral hepatitis C (principal)
CPT/HCPCS: 76705

== ENCOUNTER → 2025-02-18 | Outpatient (BNVA) | payer MEDICARE, MEDICAID, SELFPAY | END | disposition home or self-care (01) | PROVIDERS: PCP Internal Medicine; Referring Provider Internal Medicine; Visit Provider Urology | DX: N40.1 Benign prostatic hyperplasia with lower urinary tract symptoms (principal); N13.8 Other obstructive and reflux uropathy; N31.9 Neuromuscular dysfunction of bladder, unspecified; Z87.440 Personal history of urinary (tract) infections; E11.9 Type 2 diabetes mellitus without complications; F17.210 Nicotine dependence, cigarettes, uncomplicated; I10 Essential (primary) hypertension; E78.00 Pure hypercholesterolemia, unspecified; I25.10 Atherosclerotic heart disease of native coronary artery without angina pectoris; J44.9 Chronic obstructive pulmonary disease, unspecified | CPT/HCPCS: 81003; 99212; G0463 ==

== ENCOUNTER 2025-04-10 17:34 | Emergency (ER) | payer MEDICARE, MEDICAID, SELFPAY ==
[2025-04-10 17:45] VITALS: BP 120/63; PULSE 82; RESP 20; TEMP 36.9; O2SAT 95
--- NOTE | 2025-04-10 17:56 | XR_ITS ---
Examination: AP lateral chest 2 views Technique: Upright AP lateral chest 2 views Date and time: April 10, 2025, 1834 hrs., Comparison December 26, 2024 Indications: Onset left-sided chest pain beginning 3 weeks ago Findings: Mild heart failure. Moderate enlargement left ventricle. Prominent vascular congestion with septal edema at the lung bases Moderate hyperexpansion Severe osteopenia with chronic osteoporotic wedging of lower dorsal vertebral bodies Suspicious for superimposed pneumonia in the lingular segment Impression: Mild heart failure COPD Suspicious for superimposed pneumonia in the lingular segment left upper lobe
--- NOTE | 2025-04-10 17:57 | PD.EDRME ---
Rapid Medical Screening Exam E Arrival date/time: 04/10/25 17:34 74-year-old male presents to the emergency room today complains of left flank pain and left-sided rib pain ongoing for the last 2 weeks Chief Complaint: Back Pain/Injury Vital signs: Vital Signs Temperature 98.5 F 04/10/25 17:45 Pulse Rate 82 04/10/25 17:45 Respiratory Rate 20 04/10/25 17:45 Blood Pressure 120/63 04/10/25 17:45 Pulse Oximetry (%) 95 04/10/25 17:45 Oxygen Delivery Method Room Air 04/10/25 17:45
--- NOTE | 2025-04-10 18:16 | XR_ITS ---
Examination: CT chest, without intravenous contrast. CT abdomen, without intravenous contrast. CT pelvis, without intravenous contrast. 2-D sagittal and coronal reconstructions. 3-D reconstructions. Date and time of exam:April 10, 2025, 1712 hrs. Indications: Right-sided chest and abdominal pain today CTDI vol (mgy) 4.02 DLP (MGycm)289 Technique: Multiple CT images, 3.0 mm slice thickness, obtained chest, abdomen, pelvis, with the high-resolution 64 slice scanner.. Sagittal and coronal 2-D reconstructions are obtained. 3-D reconstructions Low dose protocols were performed. One or more of the following dose reduction techniques were used; automated exposure control, adjustment of the mA and/or KV according to patient size, use of iterative reconstruction technique. Findings: No thoracic aortic aneurysm dilatation No significant pulmonary artery enlargement Heavy calcification left anterior descending left circumflex coronary arteries No mediastinal lymphadenopathy COPD with areas of airspace destruction Mild pneumonia in the anterior segment left upper lobe and lingular segment left upper lobe Dilated bronchi in the lower lung zones Pneumonia also in the right middle lobe Pneumobilia Absent gallbladder Visualization of the extra hepatic biliary system is significantly limited without intravenous contrast Moderate air and stool in the colon No obstruction Pelvic detail is reduced secondary to the patient's hemiarthroplasty right hip Right common iliac artery stent Severe osteopenia with chronic osteoporotic compressions L3, L2 Impression: Pneumonia in the left upper lobe lingular segment left lung and right middle lobe Bibasilar bronchiectasis Pneumobilia, recommend hepatobiliary sonography to assess the extra hepatic biliary system No obstruction Assessment in the abdomen and pelvis is significantly reduced in this case without intravenous contrast
--- NOTE | 2025-04-10 18:17 | PD.EDBACK ---
ED Back Injury Pain RME/HPI General Chief Complaint: Back Pain/Injury Stated Complaint: LEFT LOWER BACK PAIN Time Seen by Provider: 04/10/25 18:12 Arrival date/time: 04/10/25 17:34 RME / HPI RME / HPI Narrative: 74-year-old male presents to the emergency room today complains of left flank pain and left-sided rib pain ongoing for the last 2 weeks. Pain is described as dull ache, severity moderate. Patient also complained of nonproductive cough for several days. Patient denies any trauma. Pain is worse with coughing and deep breathing. Been taking morphine for pain with no relief according to him. No fever noted no shortness of breath noted. Related Data Home Medications ?Medication ?Instructions ?Recorded ?Confirmed tizanidine 4 mg tablet 4 mg PO QID PRN Muscle Spasm 11/09/21 02/18/25 finasteride 5 mg tablet 5 mg PO QDAY 11/15/22 02/18/25 clopidogrel 75 mg tablet (Plavix) 75 mg PO QDAY 06/10/23 02/18/25 pregabalin 225 mg capsule 75 mg PO TID 06/10/23 02/18/25 potassium citrate 15 mEq (1,620 15 meq PO TID 08/13/23 02/18/25 mg) tablet,extended release albuterol sulfate 90 mcg/actuation 1 puff inhalation BID PRN Wheezing 08/22/23 02/18/25 aerosol inhaler morphine 15 mg tablet,extended 15 mg PO BID PRN Pain (Scale Score 08/22/23 02/18/25 release 4-6) atorvastatin 20 mg tablet (Lipitor) 20 mg PO QDAY 10/04/23 02/18/25 fluticasone furoate 200 1 inh inhalation QDAY 04/03/24 02/18/25 mcg-vilanterol 25 mcg/dose inhalation powder (Breo Ellipta) morphine 60 mg tablet,extended 60 mg PO BID 12/26/24 02/18/25 release pantoprazole 40 mg tablet,delayed 40 mg PO QAM 12/26/24 02/18/25 release (Protonix) tamsulosin 0.4 mg capsule 0.4 mg PO QDAY 02/18/25 02/18/25 Previous Rx's ?Medication ?Instructions ?Recorded methenamine hippurate 1 gram tablet 1 g PO BID #60 tabs 06/11/23 sitagliptin phosphate 50 mg tablet 50 mg PO QDAY #30 tabs 12/28/24 (Januvia) amoxicillin 875 mg-potassium 1 tab PO BID #14 tabs 04/10/25 clavulanate 125 mg tablet azithromycin 250 mg tablet 250 mg PO QDAY 4 days #4 tabs 04/10/25 (Zithromax) Allergies Allergy/AdvReac Type Severity Reaction Status Date / Time alprazolam Allergy Severe Agitated Verified 02/18/25 11:20 dicyclomine (From Bentyl) Allergy Severe Vomiting Verified 02/18/25 11:20 metronidazole (From Flagyl) Allergy Severe Vomiting Verified 02/18/25 11:20 shellfish derived Allergy Severe Vomiting Verified 02/18/25 11:20 Benzodiazepines AdvReac Severe ALTERS Verified 02/18/25 11:20 BEHAVIOR Review of Systems Review of Systems Narrative Review of Systems: Review of system reviewed and within normal limits except mentioned in HPI ED Exam Narrative Physical exam: VITAL SIGNS: Reviewed. GENERAL APPEARANCE: Alert and interactive, follows commands, no acute distress, HEAD AND FACE: Non-traumatic. ENT: PERRL, pink conjunctivitis, eyelid no trauma, Mucous membrane moist. NECK: Supple, nontender, no nuchal rigidity. CHEST: Left posterior chest wall tenderness, no crepitus, no paradoxical movement, no retractions. LUNGS: Clear, well ventilated, symmetric, no rales, no wheezing, no ronchi, no stridor, good breath sounds bilaterally. HEART: Regular rate, regular rhythm, no murmur, no gallops. ABDOMEN: Soft, positive bowel sounds, nondistended, no guarding, nontender, no rebound, no masses, RECTAL: Deferred. GENITAL: Deferred. NEUROLOGICAL: Gross motor function intact sensory function intact, Appropriate for age. MUSCULOSKELETAL: low back nontender, full range of motion. EXTREMITIES: Nontender, full range of motion. SKIN: Color pink, dry, no rash, no lacerations, no abrasions, no contusions. LYMPHATICS: Deferred. Course Quality Measures none Orders Category Date Time Status CT chest abdomen pelvis wo Stat Exams 04/10/25 18:16 Completed XR chest 2V Stat Exams 04/10/25 17:56 Completed CBC Stat Lab 04/10/25 18:05 Completed Comprehensive Metabolic Panel Stat Lab 04/10/25 18:05 Completed Lipase Stat Lab 04/10/25 18:05 Completed Troponin I Stat Lab 04/10/25 18:05 Completed UA, C/S IF [Urinalysis, C/S if Indicated] Stat Lab 04/10/25 19:14 Completed Urine Culture Stat Lab 04/10/25 19:14 Received Azithromycin Po [Zithromax PO] Med 04/10/25 20:47 Discontinued 500 mg PO X1 ONE Morphine* Inj Med 04/10/25 18:16 Discontinued 4 mg IM X1 ONE Morphine* Inj Med 04/10/25 20:52 Once 4 mg IM X1 ONE cefTRIAXone [Rocephin] 1,000 mg Med 04/10/25 20:47 Discontinued Lidocaine 1% 20 ml [Xylocaine 1% 20 ML] 2.1 ml IM X1 Vital Signs Vital signs: Vital Signs Temperature 98.5 F 04/10/25 17:45 Pulse Rate 82 04/10/25 17:45 Respiratory Rate 20 04/10/25 17:45 Blood Pressure 120/63 04/10/25 17:45 Pulse Oximetry (%) 95 04/10/25 17:45 Oxygen Delivery Method Room Air 04/10/25 17:45 Back Pain / Injury MDM Narrative MDM Narrative:: 74-year-old male presents to the emergency room today complains of left flank pain and left-sided rib pain ongoing for the last 2 weeks. Pain is described as dull ache, severity moderate. Patient also complained of nonproductive cough for several days. Patient denies any trauma. Pain is worse with coughing and deep breathing. Been taking morphine for pain with no relief according to him. No fever noted no shortness of breath noted. Patient's workup is significant for a leukocytosis of 12.3 CMP potassium 5.2, creatinine 1.4. Urinalysis positive for UTI. CT chest abdomen and pelvis showed Pneumonia in the left upper lobe lingular segment left lung and right middle lobe Bibasilar bronchiectasis Pneumobilia, recommend hepatobiliary sonography to assess the extra hepatic biliary system No obstruction Assessment in the abdomen and pelvis is significantly reduced in this case without intravenous contrast Clinically there is no tenderness of the right upper quadrant. Patient was given ceftriaxone IM and Zithromax for UTI and pneumonia. Patient data External records reviewed:: None Clinical information provided by:: patient Social determinants that could affect healthcare access:: none Patient has the following chronic illnesses:: COPD chronic neck pain How is presenting disease/condition affected by chronic disease/condition?: exacerbated by Evaluation data The following diagnostics were reviewed and interpreted by me:: lab results and radiology exam(s) Lab and/or radiology exams considered but not ordered:: None Interpretation Summary: See results MDM Medications / Prescriptions Medications or Prescriptions considered but not ordered:: None Medication administrations:: Medication Administration History Morphine Sulfate (Morphine Sulf Inj 4 Mg/Ml Vial) 4 mg IM X1 ONE Stop: 04/10/25 20:53 Discontinued Medications Azithromycin (Azithromycin 250 Mg Tablet) 500 mg PO X1 ONE Stop: 04/10/25 20:48 Ceftriaxone Sodium 1,000 mg/ (Lidocaine HCl 2.1 ml) 0 mg IM X1 ONE Stop: 04/10/25 20:48 Morphine Sulfate (Morphine Sulf Inj 4 Mg/Ml Vial) 4 mg IM X1 ONE Stop: 04/10/25 18:17 Last Admin: 04/10/25 18:27 Dose: 4 mg Documented By: MISHA Ceftriaxone IM, morphine, Zithromax Consultations Consultation(s) initiated? (list below): No Diagnosis Differential diagnosis back pain/injury: renal colic, pyelonephritis and other (UTI, pneumonia) Most likely diagnosis given after review of the tests above:: Pneumonia, UTI Admission Indicated Admission indicated?: not indicated Admission Request Was there a request for admission?: No Disposition Plan Disposition Plan: Discharge Discharge Attestation Discharge Attestation: The patient was given an opportunity to ask questions and understood the discharge instructions. Discharge instructions specifically effects, indications for sooner follow up or return to the emergency department, and the expected course of current diagnosis. Patient condition: Stable Discharge Plan Plan Patient Disposition: HOME (Self Care) Discharge Disposition comment: stable Prescriptions/Referrals Prescriptions/Med Rec: New amoxicillin-pot clavulanate 875-125 mg tablet 1 tab PO BID Qty: 14 0RF azithromycin [Zithromax] 250 mg tablet 250 mg PO QDAY 4 Days Qty: 4 0RF Rx Instructions: start on day 2 of therapy No Action finasteride 5 mg tablet 5 mg PO QDAY tamsulosin 0.4 mg capsule 0.4 mg PO QDAY tizanidine 4 mg tablet 4 mg PO QID PRN (Reason: Muscle Spasm) Patient Comments: TAKE ONE TABLET BY MOUTH FOUR TIMES DAILY FOR MUSCLE SPASMS pregabalin 225 mg capsule 75 mg PO TID Patient Comments: TAKE ONE CAPSULE BY MOUTH THREE TIMES A DAY clopidogrel [Plavix] 75 mg Tablet 75 mg PO QDAY methenamine hippurate 1 gram tablet 1 g PO BID Qty: 60 0RF Patient Comments: TAKE ONE TABLET BY MOUTH TWICE DAILY potassium citrate 15 mEq tablet extended release 15 meq PO TID Patient Comments: TAKE ONE TABLET BY MOUTH THREE TIMES DAILY morphine 15 mg tablet extended release 15 mg PO BID PRN (Reason: Pain (Scale Score 4-6)) Patient Comments: Not on patient active medication list. albuterol sulfate 90 mcg/actuation HFA aerosol inhaler 1 puff INHALATION BID PRN (Reason: Wheezing) Patient Comments: INHALE 1 PUFF BY MOUTH TWICE DAILY atorvastatin [Lipitor] 20 mg Tablet 20 mg PO QDAY fluticasone furoate-vilanterol [Breo Ellipta] 200-25 mcg/dose Blister With Device 1 inh INHALATION QDAY pantoprazole [Protonix] 40 mg tablet,delayed release (DR/EC) 40 mg PO QAM morphine 60 mg tablet extended release 60 mg PO BID Patient Comments: TAKE ONE TABLET BY MOUTH TWICE DAILY Januvia 50 mg tablet 50 mg PO QDAY Qty: 30 0RF Referrals: Maikol Lea MD [Primary Care Provider, Nephrology] - In 1 week Problem List Clinical Impression: Pneumonia, Chronic pain, UTI (urinary tract infection) Patient/Caregiver Discharge Instructions Discharge Activity: activity as tolerated Education Materials: ED Pneumonia (Adult) Additional Instructions: Thank you for the opportunity for serving you today. You are stable for discharged . You are advised to: Follow-up with your PCP in 1 to 2 days Return to ED for worsening of symptoms Increase oral fluids Take medication as prescribed Print Language: Bulgarian Stand Alone Forms: Vanessa Award Info., Patient Portal Info Letter PA/BERNIE Supervising Physician HERMAN/BERNIE Supervising Physician: MD Rebecca
[2025-04-10 18:26] LABS: Basophils # (Auto) 0.1 Thou/mm3 (0.0-0.2); Basophils % (Auto) 1 % (0-2.5); Eosinophils # (Auto) 0.2 Thou/mm3 (0.0-0.5); Eosinophils % (Auto) 1 % (0-10); Hematocrit 36.4 % (41.0-53.0); Hemoglobin 11.9 g/dL (13.5-16.0); Immature Granulocytes Auto 0.06 Thou/mm3 (0.00-0.00); Lymphocytes # (Auto) 1.9 Thou/mm3 (1.0-4.8); Lymphocytes % (Auto) 15 % (10-50); Mean Corpuscular HGB Conc 32.7 g/dl (31.0-37.0); Mean Corpuscular Hemoglobin 30.5 pg (25.0-35.0); Mean Corpuscular Volume 93 fL (80-100); Monocytes # (Auto) 1.2 Thou/mm3 (0.0-0.8); Monocytes % (Auto) 10 % (0-12); Neutrophils # (Auto) 9.0 Thou/mm3 (1.8-7.7); Neutrophils % (Auto) 73 % (37-80); Nucleated Red Blood Cell # 0.00 Thou/mm3 (0.00-0.00); Nucleated Red Blood Cell % 0 /100 WBC (0); Platelet Count 198 Thou/mm3 (140-440); RDW Standard Deviation 51.1 fL (35.1-43.9); Red Blood Count 3.90 Miln/mm3 (4.50-5.90); White Blood Count 12.3 Thou/mm3 (3.8-10.6)
[2025-04-10] MEDS: MORPHINE SULF INJ 4 MG/ML VIAL IM ×2 (18:27→21:18)
[2025-04-10 18:58] LABS: Alanine Aminotransferase < 7 U/L (10-49); Albumin, Serum 3.7 gm/dL (3.4-4.8); Albumin/Globulin Ratio 1.2 (1.2-2.2); Alkaline Phosphatase 75 U/L (46-116); Anion Gap 5 (7-16); Aspartate Amino Transferase 10 U/L (0-34); BUN/Creatinine Ratio 19 Ratio (12-20); Bilirubin,Total 0.4 mg/dL (0.3-1.2); Blood Urea Nitrogen 27 mg/dL (9-23); Calcium 8.5 mg/dL (8.3-10.6); Calcium (Corrected) 8.7 mg/dL (8.5-10.1); Carbon Dioxide 28.1 mMol/L (20.0-31.0); Chloride 110 mMol/L (98-107); Creatinine (Component) 1.4 mg/dL (0.6-1.3); Globulin 3.2 gm/dL (2.3-3.5); Glucose 142 mg/dL (74-106); Lipase 24 U/L (12-53); Osmolality,Calculated 292 (275-295); Potassium 5.2 mMol/L (3.4-5.1); Sodium 143 mMol/L (136-145); Total Protein 6.9 gm/dL (5.7-8.2); Troponin I < 0.002 ng/mL (0.0-0.045); eGFR 53 See Note
[2025-04-10 19:24] LABS: Collection Type, Urine Clean Catch
[2025-04-10 19:36] LABS: Bacteria,Urine Rare; Bilirubin,Urine Negative (Negative); Blood,Urine Negative (Negative); Clarity,Urine Turbid (Clear/Hazy); Color,Urine Yellow (Lt Yel-Yel); Glucose, Urine Negative (Negative); Hyaline Casts,Urine < 1 /hpf (0-1); Ketones,Urine Negative (Negative); Leukocyte Esterase,Urine Positive (Negative); Nitrite,Urine Negative (Negative); PH,Urine 6.5 (5.0-7.0); Protein,Urine 1+ (Neg - Trace); RBC,Urine 2 /hpf (0-3); Specific Gravity,Urine 1.024 (1.001-1.035); Squamous Epithelial Cell,Urine 1 /hpf (0-5); Urobilinogen,Urine 2.0 mg/dL (0.0-1.0); WBC,Urine 285 /hpf (0-5)
[2025-04-10 19:39] LABS: Culture Indicated,Urine Yes
[2025-04-10] MEDS: AZITHROMYCIN 250 MG TABLET 500 MG PO (21:16)
[2025-04-10] MEDS: cefTRIAXone 1,000 MG, LIDOCAINE 1% 20 ML 2.1 ML IM (21:17)
== END 2025-04-10 21:40 | disposition home or self-care (01) ==
PROVIDERS: Nurse Practitioner Primary Care; Emergency Provider Emergency Medicine; PCP Internal Medicine
DX: N39.0 Urinary tract infection, site not specified (principal); J18.9 Pneumonia, unspecified organism; J47.0 Bronchiectasis with acute lower respiratory infection; J44.0 Chronic obstructive pulmonary disease with (acute) lower respiratory infection; G89.29 Other chronic pain; M54.2 Cervicalgia; Z88.8 Allergy status to other drugs, medicaments and biological substances; Z88.1 Allergy status to other antibiotic agents; Z91.013 Allergy to seafood
CPT/HCPCS: 36415; 71046; 71250; 74176; 80053; 81001; 83690; 84484; 85025; 87077; 87086; 87186; 96372; 99284; J0696; J2270; J3490; A9270

== ENCOUNTER 2025-04-13 11:15 | Emergency (ER) | payer MEDICARE, MEDICAID, SELFPAY ==
[2025-04-13 11:16] VITALS: BMI 19.5
--- NOTE | 2025-04-13 11:43 | XR_ITS ---
Examination: Abdomen sonogram, Limited Date and time of exam: April 13, 2025, 1201 Indications: Onset upper abdominal pain today Technique: Real-time castro scale transabdominal sonographic images of the upper abdomen obtained. Findings: Absent gallbladder Normal common bile duct 0.5 cm Pancreas obscured by bowel gas Liver no focal liver lesions normal size Normal hepatopedal portal venous flow Patent IVC Impression: Normal common bile duct Liver normal size no focal liver lesions
--- NOTE | 2025-04-13 12:07 | PC.NURSE ---
NA X 1 @ 12:07
[2025-04-13 12:21] VITALS: BP 126/80; PULSE 69; RESP 18; TEMP 37.1; O2SAT 95; BMI 25.8
[2025-04-13 12:42] LABS: Basophils # (Auto) 0.0 Thou/mm3 (0.0-0.2); Basophils % (Auto) 0 % (0-2.5); Eosinophils # (Auto) 0.1 Thou/mm3 (0.0-0.5); Eosinophils % (Auto) 1 % (0-10); Hematocrit 39.2 % (41.0-53.0); Hemoglobin 12.5 g/dL (13.5-16.0); Immature Granulocytes Auto 0.04 Thou/mm3 (0.00-0.00); Lymphocytes # (Auto) 0.6 Thou/mm3 (1.0-4.8); Lymphocytes % (Auto) 6 % (10-50); Mean Corpuscular HGB Conc 31.9 g/dl (31.0-37.0); Mean Corpuscular Hemoglobin 30.0 pg (25.0-35.0); Mean Corpuscular Volume 94 fL (80-100); Monocytes # (Auto) 0.5 Thou/mm3 (0.0-0.8); Monocytes % (Auto) 5 % (0-12); Neutrophils # (Auto) 8.6 Thou/mm3 (1.8-7.7); Neutrophils % (Auto) 87 % (37-80); Nucleated Red Blood Cell # 0.00 Thou/mm3 (0.00-0.00); Nucleated Red Blood Cell % 0 /100 WBC (0); Platelet Count 158 Thou/mm3 (140-440); RDW Standard Deviation 52.2 fL (35.1-43.9); Red Blood Count 4.17 Miln/mm3 (4.50-5.90); White Blood Count 9.9 Thou/mm3 (3.8-10.6)
[2025-04-13 13:12] LABS: Alanine Aminotransferase 8 U/L (10-49); Albumin, Serum 3.8 gm/dL (3.4-4.8); Albumin/Globulin Ratio 1.1 (1.2-2.2); Alkaline Phosphatase 71 U/L (46-116); Anion Gap 5 (7-16); Aspartate Amino Transferase 19 U/L (0-34); BUN/Creatinine Ratio 13 Ratio (12-20); Bilirubin,Total 0.3 mg/dL (0.3-1.2); Blood Urea Nitrogen 16 mg/dL (9-23); Calcium 7.9 mg/dL (8.3-10.6); Calcium (Corrected) 8.1 mg/dL (8.5-10.1); Carbon Dioxide 24.5 mMol/L (20.0-31.0); Chloride 114 mMol/L (98-107); Creatinine (Component) 1.2 mg/dL (0.6-1.3); Estimated Creatinine Clearance 51.3 mL/min (>60); Globulin 3.4 gm/dL (2.3-3.5); Glucose 140 mg/dL (74-106); Lipase 31 U/L (12-53); Osmolality,Calculated 288 (275-295); Potassium 5.0 mMol/L (3.4-5.1); Sodium 143 mMol/L (136-145); Total Protein 7.2 gm/dL (5.7-8.2); eGFR > 60 See Note
[2025-04-13 14:26] LABS: Collection Type, Urine Clean Catch
--- NOTE | 2025-04-13 14:37 | PD.EDMALE ---
ED Male Genitalurinary RME/HPI General Chief complaint: General Adult/Misc Complain Stated complaint: CALL BACK FOR IV ANTIBX Time Seen by Provider: 04/13/25 11:42 Arrival date/time: 04/13/25 11:15 Related Data Home Medications ?Medication ?Instructions ?Recorded ?Confirmed tizanidine 4 mg tablet 4 mg PO QID PRN Muscle Spasm 11/09/21 02/18/25 finasteride 5 mg tablet 5 mg PO QDAY 11/15/22 02/18/25 clopidogrel 75 mg tablet (Plavix) 75 mg PO QDAY 06/10/23 02/18/25 pregabalin 225 mg capsule 75 mg PO TID 06/10/23 02/18/25 potassium citrate 15 mEq (1,620 15 meq PO TID 08/13/23 02/18/25 mg) tablet,extended release albuterol sulfate 90 mcg/actuation 1 puff inhalation BID PRN Wheezing 08/22/23 02/18/25 aerosol inhaler morphine 15 mg tablet,extended 15 mg PO BID PRN Pain (Scale Score 08/22/23 02/18/25 release 4-6) atorvastatin 20 mg tablet (Lipitor) 20 mg PO QDAY 10/04/23 02/18/25 fluticasone furoate 200 1 inh inhalation QDAY 04/03/24 02/18/25 mcg-vilanterol 25 mcg/dose inhalation powder (Breo Ellipta) morphine 60 mg tablet,extended 60 mg PO BID 12/26/24 02/18/25 release pantoprazole 40 mg tablet,delayed 40 mg PO QAM 12/26/24 02/18/25 release (Protonix) tamsulosin 0.4 mg capsule 0.4 mg PO QDAY 02/18/25 02/18/25 Previous Rx's ?Medication ?Instructions ?Recorded methenamine hippurate 1 gram tablet 1 g PO BID #60 tabs 06/11/23 sitagliptin phosphate 50 mg tablet 50 mg PO QDAY #30 tabs 12/28/24 (Januvia) amoxicillin 875 mg-potassium 1 tab PO BID #14 tabs 04/10/25 clavulanate 125 mg tablet azithromycin 250 mg tablet 250 mg PO QDAY 4 days #4 tabs 04/10/25 (Zithromax) Allergies Allergy/AdvReac Type Severity Reaction Status Date / Time alprazolam Allergy Severe Agitated Verified 04/13/25 11:18 dicyclomine (From Bentyl) Allergy Severe Vomiting Verified 04/13/25 11:18 metronidazole (From Flagyl) Allergy Severe Vomiting Verified 04/13/25 11:18 shellfish derived Allergy Severe Vomiting Verified 04/13/25 11:18 Benzodiazepines AdvReac Severe ALTERS Verified 04/13/25 11:18 BEHAVIOR Course Orders Category Date Time Status US abdomen limited Stat Exams 04/13/25 11:43 Taken CBC Stat Lab 04/13/25 12:28 Completed CMP [Comprehensive Metabolic Panel] Stat Lab 04/13/25 12:28 Completed Lipase Stat Lab 04/13/25 12:28 Completed UA, C/S IF [Urinalysis, C/S if Indicated] Stat Lab 04/13/25 13:30 Received Vital Signs Vital signs: Vital Signs Temperature 98.7 F 04/13/25 12:21 Pulse Rate 69 04/13/25 12:21 Respiratory Rate 18 04/13/25 12:21 Blood Pressure 126/80 04/13/25 12:21 Pulse Oximetry (%) 95 04/13/25 12:21 Oxygen Delivery Method Room Air 04/13/25 12:21 Urogenital - Male MDM Narrative MDM Narrative:: Patient is a 74-year-old male with medical history notable for macroglobulin to the emergency department after he was called back because of a urine culture that grew back Pseudomonas. Vital signs and exam as listed. Concern for resistant urinary tract infection, pyelonephritis. Ordered labs. Also called back bc CT earlier this year showed pneumobilia. Will need RUQ u/s. Offered medication for symptom relief. without intravenous contrast Labs without leukocytosis, left shift of 87%. No significant acute electrolyte abnormality, patient does have hypocalcemia will replete in the emergency department. Urinalysis is pending. Discharge Plan Prescriptions/Referrals Prescriptions/Med Rec: No Action finasteride 5 mg tablet 5 mg PO QDAY tamsulosin 0.4 mg capsule 0.4 mg PO QDAY tizanidine 4 mg tablet 4 mg PO QID PRN (Reason: Muscle Spasm) Patient Comments: TAKE ONE TABLET BY MOUTH FOUR TIMES DAILY FOR MUSCLE SPASMS pregabalin 225 mg capsule 75 mg PO TID Patient Comments: TAKE ONE CAPSULE BY MOUTH THREE TIMES A DAY clopidogrel [Plavix] 75 mg Tablet 75 mg PO QDAY methenamine hippurate 1 gram tablet 1 g PO BID Qty: 60 0RF Patient Comments: TAKE ONE TABLET BY MOUTH TWICE DAILY potassium citrate 15 mEq tablet extended release 15 meq PO TID Patient Comments: TAKE ONE TABLET BY MOUTH THREE TIMES DAILY morphine 15 mg tablet extended release 15 mg PO BID PRN (Reason: Pain (Scale Score 4-6)) Patient Comments: Not on patient active medication list. albuterol sulfate 90 mcg/actuation HFA aerosol inhaler 1 puff INHALATION BID PRN (Reason: Wheezing) Patient Comments: INHALE 1 PUFF BY MOUTH TWICE DAILY atorvastatin [Lipitor] 20 mg Tablet 20 mg PO QDAY fluticasone furoate-vilanterol [Breo Ellipta] 200-25 mcg/dose Blister With Device 1 inh INHALATION QDAY pantoprazole [Protonix] 40 mg tablet,delayed release (DR/EC) 40 mg PO QAM morphine 60 mg tablet extended release 60 mg PO BID Patient Comments: TAKE ONE TABLET BY MOUTH TWICE DAILY Januvia 50 mg tablet 50 mg PO QDAY Qty: 30 0RF amoxicillin-pot clavulanate 875-125 mg tablet 1 tab PO BID Qty: 14 0RF azithromycin [Zithromax] 250 mg tablet 250 mg PO QDAY 4 Days Qty: 4 0RF Rx Instructions: start on day 2 of therapy Referrals: Maikol Lea MD [Primary Care Provider, Nephrology] - In 1 week Patient/Caregiver Discharge Instructions Print Language: French
--- NOTE | 2025-04-13 14:44 | XR_ITS ---
Examination: AP chest single view Technique one AP portable upright chest single view Date and time: April 13, 2025, 1507 hrs., Comparison April 10, 2025 Indications: Chest pain today Findings: Moderate enlargement left ventricle Prominent vascular congestion, early septal edema at the lung bases Probable scarring in the lingular segment Severe osteopenia Impression: Mild heart failure No lobar pneumonia
[2025-04-13 14:48] LABS: Bilirubin,Urine Negative (Negative); Blood,Urine Trace (Negative); Color,Urine Yellow (Lt Yel-Yel); Glucose, Urine 1+ (Negative); Ketones,Urine Negative (Negative); Leukocyte Esterase,Urine Positive (Negative); Nitrite,Urine Negative (Negative); PH,Urine 6.5 (5.0-7.0); Protein,Urine 1+ (Neg - Trace); RBC,Urine 14 /hpf (0-3); Specific Gravity,Urine 1.026 (1.001-1.035); Squamous Epithelial Cell,Urine < 1 /hpf (0-5); Urobilinogen,Urine Negative mg/dL (0.0-1.0); WBC,Urine 130 /hpf (0-5)
--- NOTE | 2025-04-13 14:54 | PD.EDRECHK ---
ED Recheck Abnl Lab Rx-RME/HPI General Chief Complaint: General Adult/Misc Complain Stated Complaint: CALL BACK FOR IV ANTIBX Time Seen by Provider: 04/13/25 11:42 Arrival date/time: 04/13/25 11:15 Limitations: no limitations RME / HPI RME / HPI narrative: DR. 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 Patient reports chronic neck pain as baseline but additionally endorses abdominal pain, diarrhea, one episode of vomiting last night, and mild cough. He notes ongoing issues from prior neck surgery, complicated by nerve damage and surgery not going well. He has been treated for pneumonia recently with antibiotics since his previous chest x-ray showed pneumonia, patient taking them currently. Patient is in the care of urologist Dr. Chery. Patient has a history of chronic abdominal pain after he had his gastric surgery a few years ago. Related Data Home Medications ?Medication ?Instructions ?Recorded ?Confirmed tizanidine 4 mg tablet 4 mg PO QID PRN Muscle Spasm 11/09/21 02/18/25 finasteride 5 mg tablet 5 mg PO QDAY 11/15/22 02/18/25 clopidogrel 75 mg tablet (Plavix) 75 mg PO QDAY 06/10/23 02/18/25 pregabalin 225 mg capsule 75 mg PO TID 06/10/23 02/18/25 potassium citrate 15 mEq (1,620 15 meq PO TID 08/13/23 02/18/25 mg) tablet,extended release albuterol sulfate 90 mcg/actuation 1 puff inhalation BID PRN Wheezing 08/22/23 02/18/25 aerosol inhaler morphine 15 mg tablet,extended 15 mg PO BID PRN Pain (Scale Score 08/22/23 02/18/25 release 4-6) atorvastatin 20 mg tablet (Lipitor) 20 mg PO QDAY 10/04/23 02/18/25 fluticasone furoate 200 1 inh inhalation QDAY 04/03/24 02/18/25 mcg-vilanterol 25 mcg/dose inhalation powder (Breo Ellipta) morphine 60 mg tablet,extended 60 mg PO BID 12/26/24 02/18/25 release pantoprazole 40 mg tablet,delayed 40 mg PO QAM 12/26/24 02/18/25 release (Protonix) tamsulosin 0.4 mg capsule 0.4 mg PO QDAY 02/18/25 02/18/25 Previous Rx's ?Medication ?Instructions ?Recorded methenamine hippurate 1 gram tablet 1 g PO BID #60 tabs 06/11/23 sitagliptin phosphate 50 mg tablet 50 mg PO QDAY #30 tabs 12/28/24 (Januvia) amoxicillin 875 mg-potassium 1 tab PO BID #14 tabs 04/10/25 clavulanate 125 mg tablet azithromycin 250 mg tablet 250 mg PO QDAY 4 days #4 tabs 04/10/25 (Zithromax) cefixime 400 mg capsule (Suprax) 400 mg PO Q12H 7 days #14 caps 04/13/25 Allergies Allergy/AdvReac Type Severity Reaction Status Date / Time alprazolam Allergy Severe Agitated Verified 04/13/25 11:18 dicyclomine (From Bentyl) Allergy Severe Vomiting Verified 04/13/25 11:18 metronidazole (From Flagyl) Allergy Severe Vomiting Verified 04/13/25 11:18 shellfish derived Allergy Severe Vomiting Verified 04/13/25 11:18 Benzodiazepines AdvReac Severe ALTERS Verified 04/13/25 11:18 BEHAVIOR Review of Systems Review of Systems Systems Reviewed: All systems reviewed, normal except as documented Past Medical History Social History SMOKING STATUS: Never smoker SUBSTANCE USE: does not use ALCOHOL: Never Past Medical History Comments PMH COMMENT: Past medical history significant for chronic neck pain on morphine, neurogenic bladder, gastroparesis, gastric bypass 4?5 years ago, and smoking. ED Exam General Limitations: Present no limitations General appearance: Present alert, in no apparent distress and other (Chronically ill-appearing male with signs of acute decompensation.) Head Head exam: Present atraumatic, normocephalic and normal inspection Eye Eye exam: Present normal appearance, PERRL and EOMI ENT ENT exam: Present normal exam, normal oropharynx and mucous membranes moist Neck Neck exam: Present normal inspection, full ROM and trachea midline Chest Chest inspection: Present normal inspection and symmetric chest wall rise Respiratory Respiratory exam: Present normal lung sounds bilaterally; Absent respiratory distress or wheezes Cardiovascular Cardiovascular exam: Present regular rate, normal rhythm and normal heart sounds Abdominal Exam Abdominal exam: Present soft, tenderness (Abdomen notable for right upper quadrant tenderness.) and normal bowel sounds; Absent distention, guarding or rebound Extremities Exam Extremities exam: Present normal inspection and full ROM Back Exam Back exam: Present normal inspection and full ROM Neurological Exam Neurological exam: Present alert, oriented X3 and CN II-XII intact Psychiatric Psychiatric exam: Present normal affect and normal mood Skin Skin exam: Present warm, dry, intact and normal color Course Quality Measures none Orders Category Date Time Status CXR [XR chest 1V] Stat Exams 04/13/25 14:44 Taken US abdomen limited Stat Exams 04/13/25 11:43 Completed CBC Stat Lab 04/13/25 12:28 Completed CMP [Comprehensive Metabolic Panel] Stat Lab 04/13/25 12:28 Completed Lipase Stat Lab 04/13/25 12:28 Completed UA, C/S IF [Urinalysis, C/S if Indicated] Stat Lab 04/13/25 13:30 Completed Urine Culture Stat Lab 04/13/25 13:30 Received Morphine* Inj Med 04/13/25 14:44 Discontinued 2 mg IVP STAT STA Morphine* Inj Med 04/13/25 14:53 Discontinued 4 mg IVP X1 ONE cefTRIAXone/D5w 1gm IV premix [Rocephin/D5w 1gm IV Med 04/13/25 16:18 Ordered premix] 1 gm in 50 ml IV STAT Vital Signs Vital signs: Vital Signs Temperature 98.7 F 04/13/25 12:21 Pulse Rate 69 04/13/25 12:21 Respiratory Rate 18 04/13/25 12:21 Blood Pressure 126/80 04/13/25 12:21 Pulse Oximetry (%) 95 04/13/25 12:21 Oxygen Delivery Method Room Air 04/13/25 12:21 Recheck / Abnormal Lab / Rx MDM Narrative MDM Narrative:: Patient is a 74-year-old male with medical history notable for chronic smoking, gastric bypass, recurrent urinary tract infections, neurogenic bladder, this in the emergency department called back secondary to abnormal labs and abnormal CT scan. Patient was recently seen in the emergency department had a urinalysis that grew Pseudomonas resistant to multiple antibiotics as well as had a CT scan that showed pneumobilia. On my assessment, patient continues to have dysuria, has mild abdominal pain however no rebound or guarding. Concern urinary tract infection, patient without flank pain less likely urolithiasis, pyelonephritis. Patient without rebound guarding, less likely acute intra-abdominal pathology. Ordered labs, right upper quadrant ultrasound. Labs without any leukocytosis however has a left shift of 87%. Patient hemoglobin is 12.5. Patient without any significant acute electrolyte abnormalities, patient does have hypocalcemia will replete in the emergency department. Urinalysis today continues to show persistent urinary tract infection. Provided patient with a dose of antibiotics that are sensitive based on prior culture. Right upper quadrant ultrasound unremarkable. Chest x-ray with evidence of what appears to be chronic lung disease, however no focal consolidations effusions or infiltrates. Discussed the case with pharmacy, based on patient's culture patient is sensitive to ceftazidime she is a third-generation cephalosporin. Cefixime is a suitable alternative. Will provide patient a dose of ceftriaxone here and send her home with a course of antibiotics. Patient ultrasound did not identify any evidence of pneumobilia abdominal exam is reassuring. Patient be discharged home he is hemodynamically stable not in distress Tonya Tse, am scribing for and in the presence of Dr. Barreto. Patient data External records reviewed:: [facility] previous records Clinical information provided by:: patient Social determinants that could affect healthcare access:: other (specify) (Smokes cigarettes) Patient has the following chronic illnesses:: Past medical history significant for chronic neck pain on morphine, neurogenic bladder, gastroparesis, gastric bypass 4?5 years ago, and smoking. He notes ongoing issues from prior neck surgery, complicated by nerve damage and surgery not going well. He has been treated for pneumonia recently with antibiotics since his previous chest x-ray showed pneumonia, patient taking them currently. How is presenting disease/condition affected by chronic disease/condition?: exacerbated by Evaluation data The following diagnostics were reviewed and interpreted by me:: lab results and radiology exam(s) Lab and/or radiology exams considered but not ordered:: none Interpretation Summary: See MDM narrative above. RADIOLOGY Procedure(s): US abdomen limited Accession Number(s): [id number] cc: Armando David MD; Francoise Barreto MD; Maikol Lea MD~ Examination: Abdomen sonogram, Limited Date and time of exam: April 13, 2025, 120 Indications: Onset upper abdominal pain today Technique: Real-time castro scale transabdominal sonographic images of the upper abdomen obtained. Findings: Absent gallbladder Normal common bile duct 0.5 cm Pancreas obscured by bowel gas Liver no focal liver lesions normal size Normal hepatopedal portal venous flow Patent IVC Impression: Normal common bile duct Liver normal size no focal liver lesions Dictated By: Armando David MD Medications / Prescriptions Medications or Prescriptions considered but not ordered:: none Medication administrations:: Medication Administration History Ceftriaxone Sodium/Dextrose (Rocephin/D5w 1gm Iv Premix) 1 gm in 50 mls @ 100 mls/hr IV STAT STA Stop: 04/13/25 16:47 Discontinued Medications Morphine Sulfate (Morphine Sulf Inj 4 Mg/Ml Vial) 2 mg IVP STAT STA Stop: 04/13/25 14:45 Last Admin: 04/13/25 15:07 Dose: Not Given Documented By: BY Non-Admin Reason: Cancelled by Provider Morphine Sulfate (Morphine Sulf Inj 4 Mg/Ml Vial) 4 mg IVP X1 ONE Stop: 04/13/25 14:54 Last Admin: 04/13/25 15:06 Dose: 4 mg Documented By: BY see above Consultations Consultation(s) initiated? (list below): No Diagnosis Recheck Differential Diagnosis: other (Complicated UTI/urosepsis, pneumonia, and cholecystitis/cholangitis.) Most likely diagnosis given after review of the tests above:: See MDM Admission Indicated Admission indicated?: not indicated Admission Request Was there a request for admission?: No Disposition Plan Disposition Plan: Discharge Discharge Attestation Discharge Attestation: The patient and all family members were given an opportunity to ask questions and understood the discharge instructions. Discharge instructions specifically effects, indications for sooner follow up or return to the emergency department, and the expected course of current diagnosis. Patient condition: Stable Discharge Plan Plan Patient Disposition: HOME (Self Care) Prescriptions/Referrals Prescriptions/Med Rec: New cefixime [Suprax] 400 mg capsule 400 mg PO Q12H 7 Days Qty: 14 0RF No Action finasteride 5 mg tablet 5 mg PO QDAY tamsulosin 0.4 mg capsule 0.4 mg PO QDAY tizanidine 4 mg tablet 4 mg PO QID PRN (Reason: Muscle Spasm) Patient Comments: TAKE ONE TABLET BY MOUTH FOUR TIMES DAILY FOR MUSCLE SPASMS pregabalin 225 mg capsule 75 mg PO TID Patient Comments: TAKE ONE CAPSULE BY MOUTH THREE TIMES A DAY clopidogrel [Plavix] 75 mg Tablet 75 mg PO QDAY methenamine hippurate 1 gram tablet 1 g PO BID Qty: 60 0RF Patient Comments: TAKE ONE TABLET BY MOUTH TWICE DAILY potassium citrate 15 mEq tablet extended release 15 meq PO TID Patient Comments: TAKE ONE TABLET BY MOUTH THREE TIMES DAILY morphine 15 mg tablet extended release 15 mg PO BID PRN (Reason: Pain (Scale Score 4-6)) Patient Comments: Not on patient active medication list. albuterol sulfate 90 mcg/actuation HFA aerosol inhaler 1 puff INHALATION BID PRN (Reason: Wheezing) Patient Comments: INHALE 1 PUFF BY MOUTH TWICE DAILY atorvastatin [Lipitor] 20 mg Tablet 20 mg PO QDAY fluticasone furoate-vilanterol [Breo Ellipta] 200-25 mcg/dose Blister With Device 1 inh INHALATION QDAY pantoprazole [Protonix] 40 mg tablet,delayed release (DR/EC) 40 mg PO QAM morphine 60 mg tablet extended release 60 mg PO BID Patient Comments: TAKE ONE TABLET BY MOUTH TWICE DAILY Januvia 50 mg tablet 50 mg PO QDAY Qty: 30 0RF amoxicillin-pot clavulanate 875-125 mg tablet 1 tab PO BID Qty: 14 0RF azithromycin [Zithromax] 250 mg tablet 250 mg PO QDAY 4 Days Qty: 4 0RF Rx Instructions: start on day 2 of therapy Referrals: Maikol Lea MD [Primary Care Provider, Nephrology] - In 1 week Problem List Clinical Impression: Pseudomonas urinary tract infection Patient/Caregiver Discharge Instructions Print Language: Greenlandic Stand Alone Forms: [employer]essa Award Info., Patient Portal Info Letter
[2025-04-13 14:56] LABS: Clarity,Urine Hazy (Clear/Hazy); Culture Indicated,Urine Yes
[2025-04-13] MEDS: MORPHINE SULF INJ 4 MG/ML VIAL IVP (15:06)
[2025-04-13 15:43] VITALS: BP 143/73; PULSE 78; RESP 18; TEMP 36.7; O2SAT 95
[2025-04-13] MEDS: cefTRIAXone/D5w 1gm IV premix 1 GM/50 ML BAG IV (16:33)
--- NOTE | 2025-04-13 17:12 | PC.NURSE ---
patient to stop amoxicillin at home and continue the new abt and the other that he is taking at home
[2025-04-13 17:13] VITALS: BP 166/90; PULSE 62; RESP 18; O2SAT 96
== END 2025-04-13 17:14 | disposition home or self-care (01) ==
PROVIDERS: Emergency Provider Emergency Medicine; PCP Internal Medicine
DX: N39.0 Urinary tract infection, site not specified (principal); B96.5 Pseudomonas (aeruginosa) (mallei) (pseudomallei) as the cause of diseases classified elsewhere; N31.9 Neuromuscular dysfunction of bladder, unspecified; G89.29 Other chronic pain; M54.2 Cervicalgia; Z98.84 Bariatric surgery status; Z87.891 Personal history of nicotine dependence; Z16.24 Resistance to multiple antibiotics
CPT/HCPCS: 36415; 71045; 76705; 80053; 81001; 83690; 85025; 87086; 96365; 96375; 99284; J0696; J2270

== ENCOUNTER 2025-04-24 13:02 | Observation (INO) | payer MEDICARE, MEDICAID, SELFPAY ==
[2025-04-24 13:27] VITALS: BP 98/47; PULSE 88; RESP 18; TEMP 36.8; O2SAT 93
--- NOTE | 2025-04-24 13:38 | EDRME_ITS ---
Rapid Medical Screening Exam [facility] Arrival date/time: 04/24/25 13:02 74-year-old male with acute on chronic back pain with longstanding history of UTI presents to the emergency department for complaint of lower back pain. Chief Complaint: Back Pain/Injury Vital signs: Vital Signs Temperature 98.2 F 04/24/25 13:27 Pulse Rate 88 04/24/25 13:27 Respiratory Rate 18 04/24/25 13:27 Blood Pressure 98/47 L 04/24/25 13:27 Pulse Oximetry (%) 93 L 04/24/25 13:27 Oxygen Delivery Method Room Air 04/24/25 13:27
[2025-04-24 13:55] LABS: Collection Type, Urine Clean Catch
[2025-04-24 14:09] LABS: Bilirubin,Urine Negative (Negative); Blood,Urine Negative (Negative); Budding Yeast,Urine Present; Color,Urine Yellow (Lt Yel-Yel); Glucose, Urine 1+ (Negative); Hyaline Casts,Urine < 1 /hpf (0-1); Ketones,Urine Negative (Negative); Leukocyte Esterase,Urine Positive (Negative); Nitrite,Urine Negative (Negative); PH,Urine 6.5 (5.0-7.0); Protein,Urine 1+ (Neg - Trace); RBC,Urine 17 /hpf (0-3); Specific Gravity,Urine 1.021 (1.001-1.035); Squamous Epithelial Cell,Urine 1 /hpf (0-5); Urobilinogen,Urine Negative mg/dL (0.0-1.0); WBC,Urine 163 /hpf (0-5)
[2025-04-24 14:13] LABS: Clarity,Urine Hazy (Clear/Hazy); Culture Indicated,Urine Yes
[2025-04-24 14:14] LABS: Basophils # (Auto) 0.1 Thou/mm3 (0.0-0.2); Basophils % (Auto) 1 % (0-2.5); Eosinophils # (Auto) 0.2 Thou/mm3 (0.0-0.5); Eosinophils % (Auto) 2 % (0-10); Hematocrit 36.8 % (41.0-53.0); Hemoglobin 12.3 g/dL (13.5-16.0); Immature Granulocytes Auto 0.09 Thou/mm3 (0.00-0.00); Lymphocytes # (Auto) 2.2 Thou/mm3 (1.0-4.8); Lymphocytes % (Auto) 15 % (10-50); Mean Corpuscular HGB Conc 33.4 g/dl (31.0-37.0); Mean Corpuscular Hemoglobin 31.0 pg (25.0-35.0); Mean Corpuscular Volume 93 fL (80-100); Monocytes # (Auto) 1.4 Thou/mm3 (0.0-0.8); Monocytes % (Auto) 9 % (0-12); Neutrophils # (Auto) 10.8 Thou/mm3 (1.8-7.7); Neutrophils % (Auto) 73 % (37-80); Nucleated Red Blood Cell # 0.00 Thou/mm3 (0.00-0.00); Nucleated Red Blood Cell % 0 /100 WBC (0); Platelet Count 222 Thou/mm3 (140-440); RDW Standard Deviation 53.1 fL (35.1-43.9); Red Blood Count 3.97 Miln/mm3 (4.50-5.90); White Blood Count 14.8 Thou/mm3 (3.8-10.6)
[2025-04-24 14:48] LABS: Alanine Aminotransferase 7 U/L (10-49); Albumin, Serum 3.8 gm/dL (3.4-4.8); Albumin/Globulin Ratio 1.2 (1.2-2.2); Alkaline Phosphatase 71 U/L (46-116); Anion Gap 8 (7-16); Aspartate Amino Transferase 14 U/L (0-34); BUN/Creatinine Ratio 20 Ratio (12-20); Bilirubin,Total 0.2 mg/dL (0.3-1.2); Blood Urea Nitrogen 28 mg/dL (9-23); Calcium 8.8 mg/dL (8.3-10.6); Calcium (Corrected) 9.0 mg/dL (8.5-10.1); Carbon Dioxide 29.5 mMol/L (20.0-31.0); Chloride 107 mMol/L (98-107); Creatinine (Component) 1.4 mg/dL (0.6-1.3); Globulin 3.3 gm/dL (2.3-3.5); Glucose 101 mg/dL (74-106); Lipase 40 U/L (12-53); Osmolality,Calculated 292 (275-295); Potassium 5.0 mMol/L (3.4-5.1); Sodium 144 mMol/L (136-145); Total Protein 7.1 gm/dL (5.7-8.2); eGFR 53 See Note
[2025-04-24 18:08] VITALS: BP 173/92; PULSE 62; RESP 18; TEMP 36.5; O2SAT 96
--- NOTE | 2025-04-24 18:22 | XR_ITS ---
EXAMINATION: CT abdomen/pelvis without intravenous contrast Date and time: April 24, 2025, 1904 hours, comparison April 10, 2025 INDICATIONS: Left-sided lower back pain beginning 3 weeks ago TECHNIQUE AND FINDINGS: Multiple CT axial images abdomen pelvis 3.0 mm slice thickness 2D sagittal and coronal reconstructions 3D reconstructions Pneumobilia Gallbladder not visualized Spleen is not enlarged Pancreatic calcifications Aortic calcification no aneurysmal dilatation 2 mm right renal calculus 2 mm, 1 mm, 4 mm left renal calculi No hydronephrosis or ureteral calculi Abdominal aortic calcification no aneurysmal dilatation. Abundant stool throughout the colon Common iliac stents with no aneurysmal dilatation Vascular system is poorly visualized on this noncontrast study Large artifacts in the pelvis from the patient's hip arthroplasty Dense prostatic calcification, prostatomegaly 4.2 cm Severe osteopenia, osteoporotic compressions, chronic L3, L2 with cortical bone destruction contiguous margins sagittal image 118 Old fracture involving the midportion of the T12 vertebral body IMPRESSION: Pneumobilia, recommend repeat hepatobiliary sonography Bilateral nonobstructing renal calculi Dense prostatic calcifications 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
--- NOTE | 2025-04-24 18:33 | PD.EDBACK ---
ED Back Injury Pain RME/HPI General Chief Complaint: Back Pain/Injury Stated Complaint: LOWER BACK PAIN Time Seen by Provider: 04/24/25 18:12 Arrival date/time: 04/24/25 13:02 RME / HPI RME / HPI Narrative: 04/24/25 13:02 74-year-old male with a PMHx of neurogenic bladder, gastroparesis, opiate dependence for osteomyelitis of vertebral spine- uses a walker at baseline, chronic neck pain, hepatitis C, kidney stones, COPD, CKD 3, DM, recurrent UTIs last U culture grew out Pseudomonas susc to ceftazadine a 3rd generation cephalasporin which has unique antispeudamonal properties when he was seen 2 weeks ago for UTI and was discharged on cefixime which lacks pseudamonal efficacy which he completed 1 week ago. He was feeling better until yesterday when he began to have dysuria associated with L flank pain. Denies N/V, fever, urinary or stool incontinence, saddle anesthesias, weakness. Related Data Home Medications ?Medication ?Instructions ?Recorded ?Confirmed tizanidine 4 mg tablet 4 mg PO QID PRN Muscle Spasm 11/09/21 02/18/25 finasteride 5 mg tablet 5 mg PO QDAY 11/15/22 02/18/25 clopidogrel 75 mg tablet (Plavix) 75 mg PO QDAY 06/10/23 02/18/25 pregabalin 225 mg capsule 75 mg PO TID 06/10/23 02/18/25 potassium citrate 15 mEq (1,620 15 meq PO TID 08/13/23 02/18/25 mg) tablet,extended release albuterol sulfate 90 mcg/actuation 1 puff inhalation BID PRN Wheezing 08/22/23 02/18/25 aerosol inhaler morphine 15 mg tablet,extended 15 mg PO BID PRN Pain (Scale Score 08/22/23 02/18/25 release 4-6) atorvastatin 20 mg tablet (Lipitor) 20 mg PO QDAY 10/04/23 02/18/25 fluticasone furoate 200 1 inh inhalation QDAY 04/03/24 02/18/25 mcg-vilanterol 25 mcg/dose inhalation powder (Breo Ellipta) morphine 60 mg tablet,extended 60 mg PO BID 12/26/24 02/18/25 release pantoprazole 40 mg tablet,delayed 40 mg PO QAM 12/26/24 02/18/25 release (Protonix) tamsulosin 0.4 mg capsule 0.4 mg PO QDAY 02/18/25 02/18/25 Previous Rx's ?Medication ?Instructions ?Recorded methenamine hippurate 1 gram tablet 1 g PO BID #60 tabs 06/11/23 sitagliptin phosphate 50 mg tablet 50 mg PO QDAY #30 tabs 12/28/24 (Januvia) amoxicillin 875 mg-potassium 1 tab PO BID #14 tabs 04/10/25 clavulanate 125 mg tablet Allergies Allergy/AdvReac Type Severity Reaction Status Date / Time alprazolam Allergy Severe Agitated Verified 04/24/25 13:05 dicyclomine (From Bentyl) Allergy Severe Vomiting Verified 04/24/25 13:05 metronidazole (From Flagyl) Allergy Severe Vomiting Verified 04/24/25 13:05 shellfish derived Allergy Severe Vomiting Verified 04/24/25 13:05 Benzodiazepines AdvReac Severe ALTERS Verified 04/24/25 13:05 BEHAVIOR Course Quality Measures none Orders Category Date Time Status CT abdomen pelvis wo con Stat Exams 04/24/25 18:22 Completed CBC Stat Lab 04/24/25 14:07 Completed Comprehensive Metabolic Panel Stat Lab 04/24/25 14:07 Completed Lipase Stat Lab 04/24/25 14:07 Completed UA, C/S IF [Urinalysis, C/S if Indicated] Stat Lab 04/24/25 13:47 Completed Urine Culture Stat Lab 04/24/25 13:47 Received HYDROmorphone INJ [Dilaudid Inj] Med 04/24/25 18:39 Discontinued 1 mg IVP X1 ONE Piper/Tazo Inj [Zosyn Inj] 4.5 gm Med 04/24/25 19:21 Discontinued Sodium Chloride 0.9% (Pop) [NS 0.9% mini bag] 100 ml IV X1 cefTRIAXone [Rocephin] 2 gm Med 04/24/25 18:44 Discontinued SODIUM CHLORIDE 0.9% (Popper) [Ns 0.9% (P)] 50 ml IV X1 oxyCODONE/APAP 5/325 [Percocet 5/325] Med 04/24/25 14:09 Discontinued 1 tab PO X1 ONE Reevaluation(s) Reevaluation #1: Patient remains comfortable and agreeable to admission Time: 19:58 Vital Signs Vital signs: Vital Signs Temperature 98.2 F 04/24/25 13:27 Pulse Rate 88 04/24/25 13:27 Respiratory Rate 18 04/24/25 13:27 Blood Pressure 98/47 L 04/24/25 13:27 Pulse Oximetry (%) 93 L 04/24/25 13:27 Oxygen Delivery Method Room Air 04/24/25 13:27 Back Pain / Injury MDM Narrative MDM Narrative:: 74-year-old male with a complex past medical history including CKD, vertebral osteomyelitis, along with chronic UTIs presents to the ER complaining of recurrent UTI along with flank pain which has been ongoing for the past 2 weeks. U culture grew out MDR pseudamonas 2 weeks ago and was placed on cefixime, pt states he feels as if he may have had improvement of prior symptoms but now today he states it is worse again. I consulted with Sindy ly pharmacist who advised there is no oral antibiotics which patient can be discharged on and he will require IV antibiotics I called Dr. Lea who will evaluate pt for admission, pt in stable condition, case and plan discussed with and agreed upon with Dr. Thomas Patient data External records reviewed:: [facility] previous records Clinical information provided by:: patient Social determinants that could affect healthcare access:: none Patient has the following chronic illnesses:: As noted How is presenting disease/condition affected by chronic disease/condition?: exacerbated by Evaluation data The following diagnostics were reviewed and interpreted by me:: lab results and radiology exam(s) Lab and/or radiology exams considered but not ordered:: Labs concerning for mild leukocytosis 14.1, mild anemia with a hemoglobin of 12.3 BUN minimally elevated 28, creatinine minimally elevated 1.4 otherwise no severe metabolic or electrolyte abnormality and his renal function is at patient's baseline CKD UA notable for protein, glucose, 17 RBCs, 163 WBCs as well as budding yeast CT scan notable for osteomyelitis discitis at L2/L3, chronic T 12 fracture deformity, Interpretation Summary: As noted Medications / Prescriptions Medications or Prescriptions considered but not ordered:: Ordered Medication administrations:: Medication Administration History Discontinued Medications Hydromorphone HCl (Hydromorphone Inj 2 Mg/Ml Vial) 1 mg IVP X1 ONE Stop: 04/24/25 18:40 Last Admin: 04/24/25 18:52 Dose: 1 mg Documented By: VG Ceftriaxone Sodium 2 gm/ (Sodium Chloride) 50 mls @ 100 mls/hr IV X1 ONE Stop: 04/24/25 19:13 Last Admin: 04/24/25 18:55 Dose: 100 mls/hr Documented By: VG Piperacillin Sod/Tazobactam (Sod 4.5 gm/ Sodium Chloride) 100 mls @ 200 mls/hr IV X1 ONE; Protocol Stop: 04/24/25 19:50 Oxycodone/Acetaminophen (Oxycodone/Apap 5/325 Tablet) 1 tab PO X1 ONE Stop: 04/24/25 14:10 Last Admin: 04/24/25 14:51 Dose: 1 tab Documented By: EF As noted Consultations Consultation(s) initiated? (list below): No Consultation #1 (Physician, Specialty, Details): Spoke with Sindy pharmacist about abx selection and she states no suitable oral abx for this patients MDR UTI Time: 19:20 Diagnosis Most likely diagnosis given after review of the tests above:: MDR UTI Admission Indicated Admission indicated?: indicated Admission Request Was there a request for admission?: Yes Admission Attestation Admission request attestation: Discussed case with [] from Hospitalist service regarding admission. Discussed patients ED course, exam findings, labs, and radiology results. The Hospitalist [agrees,declines] to accept the patient for admission. Disposition Plan Disposition Plan: Admit Discharge Plan Plan Patient Disposition: Admit Acute Care w/in Hospital Prescriptions/Referrals Prescriptions/Med Rec: No Action finasteride 5 mg tablet 5 mg PO QDAY tamsulosin 0.4 mg capsule 0.4 mg PO QDAY tizanidine 4 mg tablet 4 mg PO QID PRN (Reason: Muscle Spasm) Patient Comments: TAKE ONE TABLET BY MOUTH FOUR TIMES DAILY FOR MUSCLE SPASMS pregabalin 225 mg capsule 75 mg PO TID Patient Comments: TAKE ONE CAPSULE BY MOUTH THREE TIMES A DAY clopidogrel [Plavix] 75 mg Tablet 75 mg PO QDAY methenamine hippurate 1 gram tablet 1 g PO BID Qty: 60 0RF Patient Comments: TAKE ONE TABLET BY MOUTH TWICE DAILY potassium citrate 15 mEq tablet extended release 15 meq PO TID Patient Comments: TAKE ONE TABLET BY MOUTH THREE TIMES DAILY morphine 15 mg tablet extended release 15 mg PO BID PRN (Reason: Pain (Scale Score 4-6)) Patient Comments: Not on patient active medication list. albuterol sulfate 90 mcg/actuation HFA aerosol inhaler 1 puff INHALATION BID PRN (Reason: Wheezing) Patient Comments: INHALE 1 PUFF BY MOUTH TWICE DAILY atorvastatin [Lipitor] 20 mg Tablet 20 mg PO QDAY fluticasone furoate-vilanterol [Breo Ellipta] 200-25 mcg/dose Blister With Device 1 inh INHALATION QDAY pantoprazole [Protonix] 40 mg tablet,delayed release (DR/EC) 40 mg PO QAM morphine 60 mg tablet extended release 60 mg PO BID Patient Comments: TAKE ONE TABLET BY MOUTH TWICE DAILY Januvia 50 mg tablet 50 mg PO QDAY Qty: 30 0RF amoxicillin-pot clavulanate 875-125 mg tablet 1 tab PO BID Qty: 14 0RF Referrals: Maikol Lea MD [Primary Care Provider, Nephrology] - In 1 week Problem List Clinical Impression: Acute UTI Impression comment: Multidrug resistant UTI Patient/Caregiver Discharge Instructions Print Language: Nepali Stand Alone Forms: Vanessa Award Info., Patient Portal Info Letter
[2025-04-24] MEDS: HYDROmorphone INJ 2 MG/ML VIAL 1 MG IVP (18:52)
[2025-04-24] MEDS: cefTRIAXone 2 GM in SODIUM CHLORIDE 0.9% (Popper) 50 ML IV (18:55)
[2025-04-24 19:11] VITALS: BP 175/84; PULSE 59; RESP 15; TEMP 36.6; O2SAT 96
[2025-04-24 20:12] VITALS: BP 151/78; PULSE 60; RESP 19; TEMP 36.7; O2SAT 96
[2025-04-24] MEDS: PIPER/TAZO INJ 4.5 GM in SODIUM CHLORIDE 0.9% (POP) 100 ML IV (20:13)
[2025-04-24 22:07] VITALS: BMI 18.3
[2025-04-25] VITALS (10 sets, daily range): BP systolic 98–175; BP diastolic 60–87; PULSE 61–68; RESP 16–93; TEMP 36.1–37.3; O2SAT 91–95; BMI 20.5
[2025-04-25] MEDS: PIPER/TAZO 3.375 GM PREMIX 3.375 GM/50 ML BAG IV ×5 (00:07→23:51)
--- NOTE | 2025-04-25 07:01 | PD.NEPHHP ---
Documentation for date of: 04/25/25 History of Present Illness History of Present Illness Chief complaint: Altered mental status History of present illness: Mr. Bingham is a 74-year-old male with significant past medical history of recurrent Pseudomonas UTI (under Dr. Dutton), chronic low back pain (under pain management-on morphine, tizanidine, pregabalin ), NIDDM 2, BPH, history of hepatitis C and history of neck surgery, recurrent episodes of altered mental status secondary to metabolic encephalopathy//complicated UTI, CKD stage III, neuropathy, COPD, anemia, acid reflux, tremor, peripheral vascular disease, partial SMA blockage (seen Dr. Begum) presented to the emergency department with altered mental status and noted to have another urinary tract infection. Patient was brought to the emergency department last night in the ambulance and after labs were done 1 dose of Zosyn was given and admitted for complicated UTI. In the emergency department his blood pressure was on the lower side. Patient was confused. Elevated white count noted. He did receive normal saline boluses and was started on IV fluids, IV antibiotics and admitted to [facility] floor for IV antibiotics. Patient was started on Zosyn as he has resistant bacteria for most of his medications Home medications have been reviewed. Labs reviewed. 04/25/2025 hemoglobin 11.6, WBC 12.4, platelets 188 sodium 143, potassium 4.3, bicarbonate 27, BUN 28, creatinine 1.4, A1c 7.1, LFTs normal, albumin 3.4, CT shows [address] abdomen showed pneumobilia, bilateral renal calculi, no hydronephrosis. Did show prostatomegaly and chronic old compression fractures with cortical destruction. Doubt patient has discitis/osteomyelitis did had workup in the past. Chest x-ray showed no pneumonia, mild heart failure. Abdominal ultrasound showed normal common bile duct. Review of Systems Review of Systems Narrative Review of Systems: Alert and awake. Complaining of constipation, abdominal discomfort. Patient has chronic back pain and abdominal pain management. Takes significant amount of Morphine. Past Medical History Past Medical History NEUROLOGIC: Negative Neurological Disorders or Seizures CARDIAC: Positive Cardiac Disorders, Coronary Artery Disease, Hypercholesterolemia and Hypertension; Negative Congestive Heart Failure RESPIRATORY: Positive Chronic Obstructive Pulmonary Disease (COPD), Asthma, Pneumonia and Smoking GASTROINTESTINAL: Positive Gastrointestinal Disorders, Hepatitis, Hiatal Hernia and Hemorrhoids GENITOURINARY: Positive Genitourinary Disorders, Kidney Stones and Benign Prostatic Hyperplasia; Negative Renal Disease MUSCULOSKELETAL: Positive Musculoskeletal Disorders, Myasthenia Gravis, Arthritis, Osteoporosis and Degenerative Disk Disease ENT: Positive Cataracts and Deafness ENDOCRINE: Positive Endocrine Disorders and Diabetes Mellitus Type 2; Negative Diabetes Mellitus Type 1 HEMATOLOGIC: Negative Blood Disorders or Sickle Cell Disease PSYCHO/SOCIAL: Positive Depression OTHER HISTORY: Positive Hospitalization, Falls and Cancer (skin cancer); Negative Autoimmune Disease, Down Syndrome, Developmental Delay, Shingles, Blood Transfusions or Anesthesia Reactions Family History FAMILY HISTORY: Negative Family Neurologic Problems, Family Psychiatric Problems, Family Respiratory Disorders, Family Cardiac Disorders, Family Gastrointestinal Problems, Family Cancer, Family Surgery or Family Anesthesia Reaction Surgical History SURGICAL: Positive Vascular Surgery, Coronary Stent, Angiogram, Endocrine Surgery, Abdominal Surgery, Gastrostomy, Nephrectomy and Joint Replacement Social History SMOKING STATUS: Current every day smoker SECOND HAND EXPOSURE: No SUBSTANCE USE: does not use Meds Home Medications and Allergies Home Medications ?Medication ?Instructions ?Recorded ?Confirmed ?Type tizanidine 4 mg tablet 4 mg PO QID PRN Muscle Spasm 11/09/21 04/25/25 History finasteride 5 mg tablet 5 mg PO QDAY 11/15/22 04/25/25 History clopidogrel 75 mg tablet (Plavix) 75 mg PO QDAY 06/10/23 04/25/25 History pregabalin 225 mg capsule 75 mg PO TID 06/10/23 04/25/25 History potassium citrate 15 mEq (1,620 15 meq PO TID 08/13/23 04/25/25 History mg) tablet,extended release albuterol sulfate 90 mcg/actuation 1 puff inhalation BID PRN Wheezing 08/22/23 04/25/25 History aerosol inhaler morphine 15 mg tablet,extended 15 mg PO Q8H Pain (Scale Score 4-6) 08/22/23 04/25/25 History release atorvastatin 20 mg tablet (Lipitor) 20 mg PO QDAY 10/04/23 04/25/25 History fluticasone furoate 200 1 inh inhalation QDAY 04/03/24 04/25/25 History mcg-vilanterol 25 mcg/dose inhalation powder (Breo Ellipta) morphine 60 mg tablet,extended 60 mg PO BID 12/26/24 04/25/25 History release pantoprazole 40 mg tablet,delayed 20 mg PO QDAY 12/26/24 04/25/25 History release (Protonix) tamsulosin 0.4 mg capsule 0.8 mg PO QDAY 02/18/25 04/25/25 History denosumab 60 mg/mL subcutaneous 60 mg subcut Q6M 04/25/25 04/25/25 History syringe (Prolia) diclofenac sodium 1 % topical gel 4 g topical QID 04/25/25 04/25/25 History morphine 30 mg tablet,extended 60 mg PO BID 04/25/25 04/25/25 History release pregabalin 75 mg capsule 300 mg PO QDAY 04/25/25 04/25/25 History propranolol 20 mg tablet 20 mg PO TID 04/25/25 04/25/25 History Allergies Allergy/AdvReac Type Severity Reaction Status Date / Time alprazolam Allergy Severe Agitated Verified 04/24/25 13:05 dicyclomine (From Bentyl) Allergy Severe Vomiting Verified 04/24/25 13:05 metronidazole (From Flagyl) Allergy Severe Vomiting Verified 04/24/25 13:05 shellfish derived Allergy Severe Vomiting Verified 04/24/25 13:05 Benzodiazepines AdvReac Severe ALTERS Verified 04/24/25 13:05 BEHAVIOR Exam Vital Signs Temp Pulse Resp BP Pulse Ox O2 Del Method 37.3 C 62 17 129/83 92 L Room Air 04/25/25 20:00 04/25/25 21:31 04/25/25 20:00 04/25/25 21:31 04/25/25 20:00 04/25/25 20:00 Narrative Exam GENERAL APPEARANCE: currently seen in medical floor. More alert today NECK: Neck supple, no JVD or bruit CARDIOVASCULAR: Heart regular, no murmurs LUNGS/CHEST: Chest clear to auscultation. No rales, rhonchi, wheezing ABDOMEN: Soft, EXTREMITIES: No edema, clubbing or cyanosis. SKIN: Skin exam normal without any rashes. MUSCULOSKELETAL: In bed NEUROLOGICAL : More alert and awake Results: Labs 04/25/25 08:26 04/25/25 08:26 Labs: Short CBC 04/25/25 Range/Units 08: WBC 12.4 H (3.8-10.6) Thou/mm3 Hgb 11.6 L (13.5-16.0) g/dL Hct 35.2 L (41.0-53.0) % Plt Count 188 D (140-440) Thou/mm3 BMP 04/25/25 08:26 Sodium 143 Potassium 4.3 D Chloride 108 H Carbon Dioxide 27.2 BUN 22 Creatinine 1.2 Glucose 118 H Calcium 8.6 Liver Function 04/25/25 Range/Units 08:26 Total Bilirubin 0.5 (0.3-1.2) mg/dL AST 11 (0-34) U/L ALT 8 L (10-49) U/L Alkaline Phosphatase 60 (46-116) U/L Albumin 3.4 (3.4-4.8) gm/dL Assessment & Plan Additional Assessment & Plan Additional Plan: Meek Mcdonough is a 74-year-old male with a medical history of recurrent urinary tract infections, history of bilateral kidney stones, essential hypertension, HLD, BPH, diabetes mellitus type 2, chronic back pain and COPD presented to [facility] via ambulance for altered mental status.? Patient was diagnosed with urosepsis. 1. Acute Encephalopathy?with NICK, AMS -secondary to underlying sepsis/ UTI-patient had a Pseudomonas resistant UTI and has been under the care of Dr. Dutton. -CT abdomen showed mild bilateral hydronephrosis. Continue with antibiotics, fluids 2. Sepsis 2/2 UTI Sepsis secondary to UTI. Pending cultures. Patient will be started on Zosyn. Chest x-ray-no signs of lobar pneumonia or pulmonary edema. Mild bronchitis noted 3.? Neck pain - under pain management-on morphine, tizanidine 4. Diabetes Mellitus Type II -Hold home oral hypoglycemics -Start insulin sliding scale -Diabetic diet -A1c stable 5.? Essential hypertension Hold home blood pressure medication 6.? 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 Chronic tobacco use -Stable -As needed DuoNebs -Pyridine Operator on tobacco cessation once mentation improved 8.? Chronic arthritic pain - As needed Dilaudid, morphine 9.? Hyperlipidemia -On statin 10. Hx of BPH -Follows Dr Chery as outpatient -Restart home medications DVT Prophylaxis: heparin GI Prophylaxis: PPI Diet: Diabetic diet Code Status: Full code Dispo: Home once stable with home health care Quality Measures Quality Measures none Advance care planning discussed with:: patient
[2025-04-25] MEDS: TAMSULOSIN HCL 0.4 MG CAPSULE 0.8 MG PO (08:49)
[2025-04-25] MEDS: PANTOPRAZOLE 20 MG TABLET PO (08:49)
[2025-04-25] MEDS: FINASTERIDE 5 MG TABLET PO (08:50)
[2025-04-25] MEDS: Morphine Sulf 15 MG TABCR PO ×3 (08:50→21:29)
[2025-04-25] MEDS: CLOPIDOGREL BISULFATE 75 MG TABLET PO (08:50)
[2025-04-25 08:51] LABS: Basophils # (Auto) 0.1 Thou/mm3 (0.0-0.2); Basophils % (Auto) 1 % (0-2.5); Eosinophils # (Auto) 0.2 Thou/mm3 (0.0-0.5); Eosinophils % (Auto) 2 % (0-10); Hematocrit 35.2 % (41.0-53.0); Hemoglobin 11.6 g/dL (13.5-16.0); Immature Granulocytes Auto 0.07 Thou/mm3 (0.00-0.00); Lymphocytes # (Auto) 1.9 Thou/mm3 (1.0-4.8); Lymphocytes % (Auto) 16 % (10-50); Mean Corpuscular HGB Conc 33.0 g/dl (31.0-37.0); Mean Corpuscular Hemoglobin 29.8 pg (25.0-35.0); Mean Corpuscular Volume 91 fL (80-100); Monocytes # (Auto) 1.1 Thou/mm3 (0.0-0.8); Monocytes % (Auto) 9 % (0-12); Neutrophils # (Auto) 9.1 Thou/mm3 (1.8-7.7); Neutrophils % (Auto) 73 % (37-80); Nucleated Red Blood Cell # 0.00 Thou/mm3 (0.00-0.00); Nucleated Red Blood Cell % 0 /100 WBC (0); Platelet Count 188 Thou/mm3 (140-440); RDW Standard Deviation 51.2 fL (35.1-43.9); Red Blood Count 3.89 Miln/mm3 (4.50-5.90); White Blood Count 12.4 Thou/mm3 (3.8-10.6)
[2025-04-25 08:53] LABS: Glucose Estimated Average 157 mg/dL (80-131); Hemoglobin A1C 7.1 % Hgb (4.8-6.0)
[2025-04-25 09:00] LABS: Alanine Aminotransferase 8 U/L (10-49); Albumin, Serum 3.4 gm/dL (3.4-4.8); Albumin/Globulin Ratio 1.1 (1.2-2.2); Alkaline Phosphatase 60 U/L (46-116); Anion Gap 8 (7-16); Aspartate Amino Transferase 11 U/L (0-34); BUN/Creatinine Ratio 18 Ratio (12-20); Bilirubin,Total 0.5 mg/dL (0.3-1.2); Blood Urea Nitrogen 22 mg/dL (9-23); Calcium 8.6 mg/dL (8.3-10.6); Calcium (Corrected) 9.1 mg/dL (8.5-10.1); Carbon Dioxide 27.2 mMol/L (20.0-31.0); Chloride 108 mMol/L (98-107); Creatinine (Component) 1.2 mg/dL (0.6-1.3); Estimated Creatinine Clearance 41.4 mL/min (>60); Globulin 3.2 gm/dL (2.3-3.5); Glucose 118 mg/dL (74-106); Magnesium 1.8 mg/dL (1.6-2.6); Osmolality,Calculated 289 (275-295); Potassium 4.3 mMol/L (3.4-5.1); Sodium 143 mMol/L (136-145); Total Protein 6.6 gm/dL (5.7-8.2); eGFR > 60 See Note
--- NOTE | 2025-04-25 11:36 | PC.SS ---
Patient is alert/oriented. Patient was able to verify demographics. Patient was admitted for complicated UTI. Patient states he's independent with ADL's. He resides wth his fish warden, Rosario. Patient states he uses a walker and a cane at home. Patient's fish warden provides transportation. Patient to return home upon discharge. PCP: Dr. Lea. Last appt was last week. Urologist: Dr. An. Pharmacy: [facility]. alt medical decision maker: Rosario Tompkins, fish warden,
[2025-04-25] MEDS: PROPRANOLOL 10 MG TABLET 20 MG PO (13:37)
--- NOTE | 2025-04-25 15:02 | PC.PT ---
PT eval only. Patient is xI with bed mobility, transfers, and ambulation with a rollator walker. Patient is safe to ambulate to the bathroom and in the halls with his rollator and 1 staff assist for IV management. RN made aware.
[2025-04-25] MEDS: HYDROmorphone INJ 2 MG/ML VIAL 1 MG IVP (16:14)
[2025-04-25] MEDS: ATORVASTATIN CALCIUM 20 MG TABLET PO (21:27)
[2025-04-25] MEDS: HEPARIN SOD INJ 5000 UNIT/ML VIAL SC (23:52)
[2025-04-26] VITALS: BP 149/94; PULSE 62; RESP 17; TEMP 37.4; O2SAT 93
--- NOTE | 2025-04-26 01:50 | PC.NURSE ---
okay to cancel one of the orders of phosphorus per Dr. Landin.
[2025-04-26 04:00] VITALS: BP 142/75; PULSE 65; RESP 17; TEMP 37.3; O2SAT 93
[2025-04-26] MEDS: PIPER/TAZO 3.375 GM PREMIX 3.375 GM/50 ML BAG IV (05:02)
[2025-04-26 05:03] VITALS: BP 142/75; PULSE 65
[2025-04-26] MEDS: Morphine Sulf 15 MG TABCR PO (05:03)
[2025-04-26] MEDS: PROPRANOLOL 10 MG TABLET 20 MG PO (05:03)
[2025-04-26] MEDS: HEPARIN SOD INJ 5000 UNIT/ML VIAL SC (05:05)
[2025-04-26 05:48] LABS: Basophils # (Auto) 0.1 Thou/mm3 (0.0-0.2); Basophils % (Auto) 0 % (0-2.5); Eosinophils # (Auto) 0.1 Thou/mm3 (0.0-0.5); Eosinophils % (Auto) 1 % (0-10); Hematocrit 36.8 % (41.0-53.0); Hemoglobin 12.2 g/dL (13.5-16.0); Immature Granulocytes Auto 0.12 Thou/mm3 (0.00-0.00); Lymphocytes # (Auto) 1.9 Thou/mm3 (1.0-4.8); Lymphocytes % (Auto) 10 % (10-50); Mean Corpuscular HGB Conc 33.2 g/dl (31.0-37.0); Mean Corpuscular Hemoglobin 30.3 pg (25.0-35.0); Mean Corpuscular Volume 92 fL (80-100); Monocytes # (Auto) 1.4 Thou/mm3 (0.0-0.8); Monocytes % (Auto) 8 % (0-12); Neutrophils # (Auto) 14.8 Thou/mm3 (1.8-7.7); Neutrophils % (Auto) 80 % (37-80); Nucleated Red Blood Cell # 0.00 Thou/mm3 (0.00-0.00); Nucleated Red Blood Cell % 0 /100 WBC (0); Platelet Count 207 Thou/mm3 (140-440); RDW Standard Deviation 51.7 fL (35.1-43.9); Red Blood Count 4.02 Miln/mm3 (4.50-5.90); White Blood Count 18.4 Thou/mm3 (3.8-10.6)
[2025-04-26 06:26] LABS: Alanine Aminotransferase < 7 U/L (10-49); Albumin, Serum 3.5 gm/dL (3.4-4.8); Albumin/Globulin Ratio 1.1 (1.2-2.2); Alkaline Phosphatase 61 U/L (46-116); Anion Gap 7 (7-16); Aspartate Amino Transferase 10 U/L (0-34); BUN/Creatinine Ratio 14 Ratio (12-20); Bilirubin,Total 0.6 mg/dL (0.3-1.2); Blood Urea Nitrogen 17 mg/dL (9-23); Calcium 8.5 mg/dL (8.3-10.6); Calcium (Corrected) 8.9 mg/dL (8.5-10.1); Carbon Dioxide 27.8 mMol/L (20.0-31.0); Chloride 108 mMol/L (98-107); Creatinine (Component) 1.2 mg/dL (0.6-1.3); Estimated Creatinine Clearance 41.4 mL/min (>60); Globulin 3.1 gm/dL (2.3-3.5); Glucose 128 mg/dL (74-106); Magnesium 1.9 mg/dL (1.6-2.6); Osmolality,Calculated 288 (275-295); Phosphorous 2.9 mg/dL (2.4-5.1); Potassium 4.0 mMol/L (3.4-5.1); Sodium 143 mMol/L (136-145); Total Protein 6.6 gm/dL (5.7-8.2); eGFR > 60 See Note
[2025-04-26 08:00] VITALS: BP 112/58; PULSE 64; RESP 17; TEMP 37; O2SAT 96
[2025-04-26] MEDS: TAMSULOSIN HCL 0.4 MG CAPSULE 0.8 MG PO (08:36)
[2025-04-26] MEDS: FINASTERIDE 5 MG TABLET PO (08:37)
[2025-04-26] MEDS: PANTOPRAZOLE 20 MG TABLET PO (08:37)
[2025-04-26] MEDS: CLOPIDOGREL BISULFATE 75 MG TABLET PO (08:37)
--- NOTE | 2025-04-26 08:46 | PC.NURSE ---
Dr. Lea says pt has an appt to get the stitches out of his ear today
--- NOTE | 2025-04-26 11:04 | PD.NEPHDC ---
Planned Discharge Date 04/26/25 DS: Providers Provider Date of admission: 04/24/25 20:37 Primary care physician: Maiokl Lea MD Admitting Provider: Maikol Lea MD Attending Provider on Admission: Maikol Lea MD Consults: 04/25/25 00:02 Referral Physical Therapy Routine Comment: Physician Instructions: Referral Registered Dietitian Routine Comment: 04/25/25 03:49 Referral Respiratory Therapy Routine Comment: Attending Provider on DC: Maikol Lea MD Discharging Provider: Maikol Lea MD Discharge Diagnosis Discharge Diagnosis (1) History of diabetes mellitus: Status: Acute Assessment & Plan: 1. Acute Encephalopathy?with NICK, AMS -secondary to underlying sepsis/ UTI-patient had a Pseudomonas resistant UTI and has been under the care of Dr. Dutton. -CT abdomen showed mild bilateral hydronephrosis. Continue with antibiotics, fluids Patient came back to normal. Urine cultures were negative probably related to the antibiotic usage in the outpatient setting. Sepsis resolved. 2. Sepsis 2/2 UTI-resolved Sepsis secondary to UTI. Cultures came back negative. Patient was given Zosyn. No need for p.o. antibiotics. Chest x-ray-no signs of lobar pneumonia or pulmonary edema. Mild bronchitis noted 3.? Neck pain - under pain management-on morphine, tizanidine 4. Diabetes Mellitus Type II -Hold home oral hypoglycemics -Start insulin sliding scale -Diabetic diet -A1c stable 5.? Essential hypertension Hold home blood pressure medication 6.? 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 Chronic tobacco use -Stable -As needed DuoNebs -[employer] Location Manager on tobacco cessation once mentation improved 8.? Chronic arthritic pain - As needed Dilaudid, morphine 9.? Hyperlipidemia -On statin 10. Hx of BPH -Follows Dr Chery as outpatient -Restart home medications Patient be discharged home today. Problem List Completed Was Problem List Reviewed/Reconciled?: Yes Hospital Course Hospital Course Hospital course: Mr. Bingham is a 74-year-old male with significant past medical history of recurrent Pseudomonas UTI (under Dr. Dutton), chronic low back pain (under pain management-on morphine, tizanidine, pregabalin ), NIDDM 2, BPH, history of hepatitis C and history of neck surgery, recurrent episodes of altered mental status secondary to metabolic encephalopathy//complicated UTI, CKD stage III, neuropathy, COPD, anemia, acid reflux, tremor, peripheral vascular disease, partial SMA blockage (seen Dr. Begum) presented to the emergency department with altered mental status and noted to have another urinary tract infection. Patient was brought to the emergency department last night in the ambulance and after labs were done 1 dose of Zosyn was given and admitted for complicated UTI. In the emergency department his blood pressure was on the lower side. Patient was confused. Elevated white count noted. He did receive normal saline boluses and was started on IV fluids, IV antibiotics and admitted to [facility] floor for IV antibiotics. Patient was started on Zosyn as he has resistant bacteria for most of his medications Home medications have been reviewed. Labs reviewed. 04/25/2025 hemoglobin 11.6, WBC 12.4, platelets 188 sodium 143, potassium 4.3, bicarbonate 27, BUN 28, creatinine 1.4, A1c 7.1, LFTs normal, albumin 3.4, CT shows [address] abdomen showed pneumobilia, bilateral renal calculi, no hydronephrosis. Did show prostatomegaly and chronic old compression fractures with cortical destruction. Doubt patient has discitis/osteomyelitis did had workup in the past. Chest x-ray showed no pneumonia, mild heart failure. Abdominal ultrasound showed normal common bile duct. 04/26/2025 patient resting comfortably. Denies any chest pain, shortness of breath. Denies any nausea, vomiting. Still have low back pain and neck pain which is chronic. Labs and medications reviewed. Cultures negative. Will be discharged. Status at Discharge Cognitive/behavioral status at discharge: Stable Functional status at discharge: independent ambulation Overall status at discharge: patient is progressing back to baseline Time Spent with Patient Time attestation: Total time spent providing and/or coordinating discharge services: 35 min Exam Vital Signs Temp Pulse Resp BP Pulse Ox O2 Del Method 37.0 C 64 17 112/58 L 96 Room Air 04/26/25 08:00 04/26/25 08:00 04/26/25 08:00 04/26/25 08:00 04/26/25 08:00 04/26/25 08:00 Narrative Exam GENERAL APPEARANCE: currently seen in medical floor. More alert today NECK: Neck supple, no JVD or bruit CARDIOVASCULAR: Heart regular, no murmurs LUNGS/CHEST: Chest clear to auscultation. No rales, rhonchi, wheezing ABDOMEN: Soft, EXTREMITIES: No edema, clubbing or cyanosis. SKIN: Skin exam normal without any rashes. MUSCULOSKELETAL: In bed NEUROLOGICAL : More alert and awake Discharge Plan Plan Patient Disposition: HOME (Self Care) Prescriptions/Referrals Prescriptions/Med Rec: Continued finasteride 5 mg tablet 5 mg PO QDAY tamsulosin 0.4 mg capsule 0.8 mg PO QDAY tizanidine 4 mg tablet 4 mg PO QID PRN (Reason: Muscle Spasm) Patient Comments: TAKE ONE TABLET BY MOUTH FOUR TIMES DAILY FOR MUSCLE SPASMS pregabalin 225 mg capsule 75 mg PO TID Patient Comments: TAKE ONE CAPSULE BY MOUTH THREE TIMES A DAY clopidogrel [Plavix] 75 mg Tablet 75 mg PO QDAY methenamine hippurate 1 gram tablet 1 g PO BID Qty: 60 0RF Patient Comments: TAKE ONE TABLET BY MOUTH TWICE DAILY potassium citrate 15 mEq tablet extended release 15 meq PO TID Patient Comments: TAKE ONE TABLET BY MOUTH THREE TIMES DAILY morphine 15 mg tablet extended release 15 mg PO Q8H Patient Comments: Not on patient active medication list. albuterol sulfate 90 mcg/actuation HFA aerosol inhaler 1 puff INHALATION BID PRN (Reason: Wheezing) Patient Comments: INHALE 1 PUFF BY MOUTH TWICE DAILY atorvastatin [Lipitor] 20 mg Tablet 20 mg PO QDAY morphine 30 mg tablet extended release 60 mg PO BID pregabalin 75 mg capsule 300 mg PO QDAY propranolol 20 mg tablet 20 mg PO TID Patient Comments: TAKE ONE TABLET BY MOUTH THREE TIMES DAILY diclofenac sodium 1 % gel 4 g topical QID Rx Instructions: apply to single knee, ankle, foot; for foot includes sole/toes/top of foot Prolia 60 mg/mL syringe 60 mg subcut Q6M fluticasone furoate-vilanterol [Breo Ellipta] 200-25 mcg/dose Blister With Device 1 inh INHALATION QDAY pantoprazole [Protonix] 40 mg tablet,delayed release (DR/EC) 20 mg PO QDAY morphine 60 mg tablet extended release 60 mg PO BID Patient Comments: TAKE ONE TABLET BY MOUTH TWICE DAILY Januvia 50 mg tablet 50 mg PO QDAY Qty: 30 0RF Referrals: Maikol Lea MD [Primary Care Provider, Nephrology] Patient/Caregiver Discharge Instructions Discharge Activity: activity as tolerated Education Materials: Understanding Sepsis Print Language: Czech Activity Restrictions/Additional Instructions: f/u with dr. lea in 1-2 weeks Stand Alone Forms: Vanessa Award Info., Patient Portal Info Letter Discharge Order Discharge Orders: Discharge (Routine); Ordered 04/26/25 Ordered By: Maikol Lea
== END 2025-04-26 08:50 | disposition home or self-care (01) ==
LOC: SERX 19:51 → S3SX 04-25 06:09 → SERHOLD 04-26 09:22 → S3SX 04-26 09:23
PROVIDERS: Nurse Practitioner Primary Care; Admitting Provider Internal Medicine; Emergency Provider Emergency Medicine; PCP Internal Medicine; Visit Provider Internal Medicine
DX: N39.0 Urinary tract infection, site not specified (principal); G89.29 Other chronic pain; M54.9 Dorsalgia, unspecified; N18.30 Chronic kidney disease, stage 3 unspecified; E11.22 Type 2 diabetes mellitus with diabetic chronic kidney disease; J44.9 Chronic obstructive pulmonary disease, unspecified; B19.20 Unspecified viral hepatitis C without hepatic coma; M54.2 Cervicalgia; G93.40 Encephalopathy, unspecified; E11.43 Type 2 diabetes mellitus with diabetic autonomic (poly)neuropathy; I12.9 Hypertensive chronic kidney disease with stage 1 through stage 4 chronic kidney disease, or unspecified chronic kidney disease; Z72.0 Tobacco use; E78.5 Hyperlipidemia, unspecified; M19.90 Unspecified osteoarthritis, unspecified site; N40.0 Benign prostatic hyperplasia without lower urinary tract symptoms
CPT/HCPCS: 36415; 74176; 80053; 81001; 83036; 83690; 83735; 84100; 85025; 87086; 96365; 96366; 96372; 96375; 96376; 97161; G0378; J0696; J1171; J1644; J2543; J7050; A9270

== ENCOUNTER → 2025-05-01 | Outpatient (CLI) | payer MEDICARE, MEDICAID, SELFPAY ==
--- NOTE | 2025-05-01 14:49 | XR_ITS ---
Examination: Ribs, left, with PA chest, 5 views Technique: Chest PA, RIBS AP, RPO, LPO, AP coned lower ribs 5 views Exam date and time: May 01, 2025, 1521 hours INDICATIONS: Left-sided rib pain beginning 3 weeks ago Findings: Normal heart size Accentuation of basilar bronchovascular markings Vascular stent overlying the left lung apex Calcified granuloma left midlung No pneumonia Severe osteopenia Suspicious for subacute nondisplaced fracture left sixth rib anteriorly and left ninth rib posteriorly IMPRESSION: No pneumothorax Suspicious for subacute rib fractures as above
== END | disposition home or self-care (01) ==
LOC: CDIM 14:36
PROVIDERS: PCP Internal Medicine; Referring Provider Internal Medicine; Visit Provider Internal Medicine
DX: R07.82 Intercostal pain (principal)
CPT/HCPCS: 71101